=== PATIENT | female | born 1975 | race Caucasian/White ===

== ENCOUNTER → 2016-06-03 | Outpatient (CLI) | payer OTHER ==
--- NOTE | 2016-06-03 14:22 | MM ---
Reason for exam: screening (asymptomatic). Baseline mammogram. History: Took hormonal contraceptives beginning at age 18. Physical Findings: Nurse did not find any significant physical abnormalities on exam. MG Screening Mammo w CAD Bilateral CC and MLO view(s) were taken. The breast tissue is heterogeneously dense. This may lower the sensitivity of mammography. No suspicious calcifications or masses are seen. There is no discrete abnormality. ASSESSMENT: Negative, BI-RAD 1 RECOMMENDATION: Routine screening mammogram of both breasts in 1 year.
== END | disposition home or self-care (01) ==
LOC: RADMAMWWP 10:25
PROVIDERS: ATTEND Obstetrics & Gynecology
DX: Z12.31 Encounter for screening mammogram for malignant neoplasm of breast (principal)

== ENCOUNTER 2017-03-21 20:45 | Inpatient (IN) | payer MEDICAID, OTHER ==
[2017-03-21 22:50] LABS: Acetaminophen <10.0 ug/mL; Salicylate <1.0 mg/dL
[2017-03-21 22:50] LABS: Amphetamine Screen,Urine Not Detected (NotDetected); Barbiturate Screen,Urine Not Detected (NotDetected); Benzodiazepines Screen,Urine Not Detected (NotDetected); Cocaine Screen,Urine Not Detected (NotDetected); Methadone Screen, Urine Not Detected (NotDetected); Opiate Screen,Urine Not Detected (NotDetected); Oxycodone Screen, Urine Not Detected (NotDetected); Phencyclidine Screen,Urine Not Detected (NotDetected); Tricyclic Antidepressant,Urine Not Detected (NotDetected); Urn Cannabinoid Scrn Detected (NotDetected)
[2017-03-22] MEDS ORDERED: MAGNESIUM HYDROXIDE 2,400 MG/10 ML CUP PO PRN (00:02)
[2017-03-22] MEDS ORDERED: MAG HYDROX/AL HYDROX/SIMETH 30 ML CUP PO PRN (00:02)
--- NOTE | 2017-03-22 00:13 | ED ---
General Adult HPI - General Chief complaint: Psychiatric Symptoms Stated complaint: mental health Time Seen by Provider: 03/21/17 21:38 Source: patient, RN notes reviewed Mode of arrival: ambulatory Limitations: no limitations - History of Present Illness Initial comments: Chief complaint and history of present illness this is a 42-year-old female brought to emergency room under pickup. The patient is not taking her medications history of schizophrenia. She reportedly hearing and seeing things. Not taking care of herself - Related Data Home Medications Medication Instructions Recorded Confirmed ARIPiprazole IM [Abilify Maintena] 400 mg IM Q30D 03/21/17 03/21/17 Cyclobenzaprine [Flexeril] 10 mg PO BID 03/21/17 03/21/17 DULoxetine HCL [Cymbalta] 60 mg PO DAILY 03/21/17 03/21/17 Ibuprofen [Motrin] 800 mg PO TID PRN 03/21/17 03/21/17 Propranolol LA [Inderal LA] 80 mg PO DAILY 03/21/17 03/21/17 Topiramate [Topamax] 25 mg PO BID 03/21/17 03/21/17 hydrOXYzine PAMOATE [Vistaril] 50 mg PO HS 03/21/17 03/21/17 Allergies Allergy/AdvReac Type Severity Reaction Status Date / Time Penicillins Allergy Rash/Hives Verified 03/21/17 21:38 Review of Systems ROS Statement: Those systems with pertinent positive or pertinent negative responses have been documented in the HPI. Review of systems patient denying any headache chest pain shortness breath GI/ problems. She has not been answering the door for her caseworkers. Reportedly not taking the medications for schizophrenia. Past medical problems significant for schizoaffective disorder. Patient reports that she has ALLERGIES to penicillin. Surgeries include a . Occasional smoker ROS Other: All systems not noted in ROS Statement are negative. Past Medical History Past Medical History: No Reported History Additional Past Medical History / Comment(s): Schizoaffective disorder, fibromyalgia, herniated disc History of Any Multi-Drug Resistant Organisms: None Reported Past Surgical History: Section Past Anesthesia/Blood Transfusion Reactions: No Reported Reaction Past Psychological History: Depression, Schizoaffective Disorder, Schizophrenia Smoking Status: Current every day smoker Past Alcohol Use History: Occasional Past Drug Use History: Marijuana General Exam - General Exam Comments Initial Comments: General: The patient is awake and alert, in no distress, and does not appear acutely ill. patient denies any problems. She is here because she has schizophrenia she 's not been taking her medications not been answering the door for her counselors and her caseworkers. 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 Vital signs shows temperature 97.8 pulse 111 respiratory rate 18 pulse ox on percent room air blood pressure 119/81 Eye: Pupils are equal, round and reactive to light, extra-ocular movements are intact ; there is normal conjunctiva bilaterally. No signs of icterus. Ears, nose, mouth and throat: There are moist mucous membranes , extremely poor dentition and multiple caries with fractured teeth Neck: The neck is supple, Cardiovascular: There is a regular rate and rhythm. No murmur, rub or gallop is appreciated. Respiratory: Lungs are clear to auscultation, respirations are non-labored, breath sounds are equal. No wheezes, stridor, rales, or rhonchi. Gastrointestinal: Soft, non-distended, non-tender abdomen without masses or organomegaly noted. There is no rebound or guarding present. No CVA tenderness. Bowel sounds are unremarkable.denying abdominal pain. Back: denies back pain. Musculoskeletal: Normal ROM, no tenderness, There is no pedal edema. There is no calf tenderness or swelling. Sensation intact. Neurological: neuro intact, not complaining of any neuro deficits. Skin: Skin is warm and dry and no rashes or lesions are noted. Psychiatric: initially the patient did not want to talk. Then she started to speak. She states she is schizophrenic states she is taking medications. Denying to me that she is hallucinating. Limitations: no limitations Course Vital Signs 03/21/17 21:05 Temperature 97.8 F Pulse Rate 111 H Respiratory 18 Rate Blood Pressure 119/81 O2 Sat by Pulse 100 Oximetry Medical Decision Making - Medical Decision Making his labs within normal limits. Patient has been petitioned for further evaluation on the psychiatric floor. I have completed a certificate for admission. Psychiatric nurse spoke to the patient and the psychiatrist. Patient be admitted to 3 . - Lab Data Lab Results 03/21/17 03/21/17 03/21/17 Range/Units 22:15 22:15 22:34 Urine HCG, Qual Not Detected (Not Detectd) Salicylates <1.0 mg/dL Urine Opiates Screen Not Detected (NotDetected) Ur Oxycodone Screen Not Detected (NotDetected) Urine Methadone Screen Not Detected (NotDetected) Ur Propoxyphene Screen Not Detected (NotDetected) Acetaminophen <10.0 ug/mL Ur Barbiturates Screen Not Detected (NotDetected) U Tricyclic Antidepress Not Detected (NotDetected) Ur Phencyclidine Scrn Not Detected (NotDetected) Ur Amphetamines Screen Not Detected (NotDetected) U Methamphetamines Scrn Not Detected (NotDetected) U Benzodiazepines Scrn Not Detected (NotDetected) Urine Cocaine Screen Not Detected (NotDetected) U Marijuana (THC) Screen Detected H (NotDetected) Disposition Clinical Impression: Schizophrenia Disposition: TRANSFER TO PSYCH HOSP/UNIT Condition: Serious
[2017-03-22 00:29] LABS: Appearance,Urine Cloudy (Clear); Bacteria,Urine Rare /hpf; Bilirubin,Urine Negative (Negative); Blood,Urine Negative (Negative); Color,Urine Yellow; Glucose,Urine (UA) Negative (Negative); Hyaline Casts,Urine 3 /lpf (0-2); Ketones,Urine Negative (Negative); Leukocyte Esterase,Urine Trace (Negative); Mucus,Urine Occasional /hpf; Nitrite,Urine Negative (Negative); Protein,Urine Trace (Negative); RBC,Urine 1 /hpf (0-5); Specific Gravity,Urine 1.016 (1.001-1.035); Squamous Epithelial Cell,Urine 25 /hpf (0-4); Urobilinogen,Urine <2.0 mg/dL (<2.0); WBC,Urine 2 /hpf (0-5)
[2017-03-22] MEDS: PROPRANOLOL LA 80 MG CAP.SA.24H PO SCH (09:02)
[2017-03-22] MEDS: TOPIRAMATE 25 MG TAB PO SCH ×2 (09:02→20:40)
[2017-03-22] MEDS: CYCLOBENZAPRINE 10 MG TAB PO SCH ×2 (09:02→20:40)
[2017-03-22] MEDS: NICOTINE 14MG/24HR PATCH TRANSDERM SCH (09:02)
[2017-03-22] MEDS: DULoxetine HCL 60 MG CAPSULE.DR PO SCH (09:02)
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
--- NOTE | 2017-03-22 11:25 | P.CONS ---
History of Present Illness - Reason for Consult Consult date: 03/22/17 Medical management - Chief Complaint Hearing voices - History of Present Illness This is a 42-year-old female with past medical history noted below significant for underlying schizoaffective disorder and depression who presented to the emergency room brought in by her friend edis to be admitted to the psych unit. Apparently, patient has been hearing(and acting strangely for a couple weeks. She has been also drinking alcohol according to chart review. Patient is currently admitted to the psych unit. I was asked to see her for medical management. Patient is awake and alert. She is not very cooperative answering my questions. She said that she is feeling well and denies drinking alcohol at all. She denies hearing any voices. Review of Systems Review of system: 14 points review of systems were obtained and were negative except to what were mentioned in the HPI. Past Medical History Past Medical History: No Reported History Additional Past Medical History / Comment(s): Schizoaffective disorder, fibromyalgia, herniated disc History of Any Multi-Drug Resistant Organisms: None Reported Past Surgical History: Section Past Anesthesia/Blood Transfusion Reactions: No Reported Reaction Past Psychological History: Depression, Schizoaffective Disorder, Schizophrenia Smoking Status: Current every day smoker Past Alcohol Use History: Occasional Past Drug Use History: Marijuana Medications and Allergies Home Medications Medication Instructions Recorded Confirmed Type ARIPiprazole IM [Abilify Maintena] 400 mg IM Q30D 03/21/17 03/21/17 History Cyclobenzaprine [Flexeril] 10 mg PO BID 03/21/17 03/21/17 History DULoxetine HCL [Cymbalta] 60 mg PO DAILY 03/21/17 03/21/17 History Ibuprofen [Motrin] 800 mg PO TID PRN 03/21/17 03/21/17 History Propranolol LA [Inderal LA] 80 mg PO DAILY 03/21/17 03/21/17 History Topiramate [Topamax] 25 mg PO BID 03/21/17 03/21/17 History hydrOXYzine PAMOATE [Vistaril] 50 mg PO HS 03/21/17 03/21/17 History Allergies Allergy/AdvReac Type Severity Reaction Status Date / Time Penicillins Allergy Rash/Hives Verified 03/21/17 21:38 Physical Exam Vitals: Vital Signs Temp Pulse Pulse Pulse Resp BP BP 03/22/17 09:00 108 H 18 120/77 03/22/17 04:25 98.9 F 95 18 03/22/17 00:06 98.3 F 88 16 123/77 03/21/17 21:05 97.8 F 111 H 18 119/81 BP Pulse Ox 03/22/17 09:00 03/22/17 04:25 137/96 03/22/17 00:06 100 03/21/17 21:05 100 Intake and Output 03/21/17 03/22/17 03/22/17 22:59 06:59 14:59 Other: Weight 74.843 kg General: The patient is awake and alert, in no distress Eye: there is normal conjunctiva bilaterally. Neck: The neck is supple, there is no JVD. Cardiovascular: Normal S1-S2, no S3-S4, no murmurs. Respiratory: Lungs clear to auscultation bilaterally Gastrointestinal: Abdomen is soft, nontender Musculoskeletal: There is no pedal edema. Neurological:. Speech is normal. Skin: Skin is warm and dry Results Labs: Abnormal Lab Results - Last 24 Hours (Table) 03/21/17 03/22/17 Range/Units 22:15 00:05 Urine Appearance Cloudy H (Clear) Urine Protein Trace H (Negative) Ur Leukocyte Esterase Trace H (Negative) Ur Squamous Epith Cells 25 H (0-4) /hpf Urine Bacteria Rare H (None) /hpf Hyaline Casts 3 H (0-2) /lpf Urine Mucus Occasional H (None) /hpf U Marijuana (THC) Screen Detected H (NotDetected) Assessment and Plan Assessment: 1. Underlying schizophrenia presented to the hospital with acute psychosis. Currently admitted to the psych unit. Managed by psychiatry. 2. Major depressive disorder, with no suicidal ideation 3. Essential hypertension, blood pressure well-controlled 4. Alcohol abuse, counseled extensively to quit 5. Chronic low back pain Today, I reviewed her medication list and lab work results. Continue current regimen. I will continue to follow up on her on an as-needed basis. Thank you very much for the consultation.
[2017-03-22] MEDS: QUEtiapine 50 MG TAB PO SCH (20:40)
[2017-03-22] MEDS: IBUPROFEN 800 MG TAB PO PRN (20:41)
[2017-03-22] MEDS ORDERED: hydrOXYzine PAMOATE 25 MG CAP PO SCH (21:00)
[2017-03-23] MEDS: PROPRANOLOL LA 80 MG CAP.SA.24H PO SCH (09:00)
[2017-03-23] MEDS: CYCLOBENZAPRINE 10 MG TAB PO SCH ×2 (09:00→21:14)
[2017-03-23] MEDS: TOPIRAMATE 25 MG TAB PO SCH ×2 (09:00→21:13)
[2017-03-23] MEDS: DULoxetine HCL 60 MG CAPSULE.DR PO SCH (09:00)
[2017-03-23] MEDS: IBUPROFEN 800 MG TAB PO PRN (09:01)
[2017-03-23] MEDS: NICOTINE 14MG/24HR PATCH TRANSDERM SCH (09:03)
--- NOTE | 2017-03-23 09:21 | P.PN ---
Progress Note - Text Interval history: The patient is found in the hallway she follows me to an interview room. She initiates no conversation but provides brief answers to questions asked. Overall she is guarded she is underreporting symptoms and is vague especially when inquiring about symptoms of psychosis. She indicates that she slept better with the Seroquel versus Vistaril. She has been compliant with the Cymbalta which we have restarted. She reports her appetite continues to be low although she did eat some this morning. Mental status exam: The patient is a female dressed in hospital gowns she has a disheveled appearance. She has a very bland to flat affect. She demonstrates psychomotor slowing. She describes her mood as "dandy". She endorses auditory hallucinations but does not feel comfortable describing the content she does not feel comfortable describing the content of delusional thoughts. Overall she appears suspicious and guarded. She continues to lack insight into the reason for this admission. She is oriented to person place and date. She demonstrates no verbal or physical aggressiveness she demonstrates no abnormal involuntary movements. She does not appear hypomanic or manic. Plan: The patient will continue on her current psychotropics we will consider titrating the Seroquel further. She is encouraged to attend more groups. Vital signs reviewed. She requires continued evaluation and treatment for symptoms of psychosis.
[2017-03-23 09:28] LABS: Basophils % (A) 0 %; Eosinophils # (A) 0.3 k/uL (0-0.7); Eosinophils % (A) 3 %; HGB 16.1 gm/dL (11.4-16.0); Lymphocytes # (A) 2.8 k/uL (1.0-4.8); Lymphocytes % (A) 33 %; MCH 29.7 pg (25.0-35.0); MCHC 33.6 g/dL (31.0-37.0); MCV 88.5 fL (80.0-100.0); Mean Platelet Volume 8.2; Monocytes # (A) 0.3 k/uL (0-1.0); Monocytes % (A) 3 %; Neutrophils % (A) 59 %; Platelet Count 309 k/uL (150-450); RBC 5.43 m/uL (3.80-5.40); RDW 13.3 % (11.5-15.5); WBC 8.5 k/uL (3.8-10.6)
[2017-03-23 09:46] LABS: ALT 44 U/L (9-52); AST 32 U/L (14-36); Albumin 4.2 g/dL (3.5-5.0); Alkaline Phosphatase 70 U/L (38-126); Anion Gap 9 mmol/L; Blood Urea Nitrogen 13 mg/dL (7-17); Calcium 9.9 mg/dL (8.4-10.2); Carbon Dioxide 22 mmol/L (22-30); Chloride 110 mmol/L (98-107); Cholesterol 234 mg/dL (<200); Glucose 141 mg/dL (74-99); HDL Cholesterol 37 mg/dL (40-60); LDL Cholesterol,Calculated 164 mg/dL (0-99); Sodium 141 mmol/L (137-145); Total Bilirubin 0.5 mg/dL (0.2-1.3); Total Protein 7.5 g/dL (6.3-8.2); Triglycerides 163 mg/dL (<150)
[2017-03-23 10:32] LABS: Potassium 4.3 mmol/L (3.5-5.1)
[2017-03-23] MEDS: QUEtiapine 50 MG TAB PO SCH (21:14)
[2017-03-24] MEDS ORDERED: IBUPROFEN 600 MG TAB PO ONE (09:00)
[2017-03-24] MEDS ORDERED: TOPIRAMATE 25 MG TAB ONE (09:00)
[2017-03-24] MEDS ORDERED: CYCLOBENZAPRINE 10 MG TAB ONE (09:00)
[2017-03-24] MEDS ORDERED: PROPRANOLOL LA 80 MG CAP.SA.24H PO ONE (09:00)
[2017-03-24] MEDS ORDERED: QUEtiapine 100 MG TAB ONE ×2 (09:00→20:38)
[2017-03-24] MEDS ORDERED: DULoxetine HCL 60 MG CAPSULE.DR PO ONE (09:00)
[2017-03-24] MEDS ORDERED: NICOTINE 21MG/24HR PATCH TRANSDERM ONE (09:00)
--- NOTE | 2017-03-24 22:53 | PN ---
PROGRESS NOTE DATE OF SERVICE DICTATION: 03/24/2017 INTERVAL HISTORY: The patient is found in the dining room. She follows me to an interview room. She endorses a depressed mood. She reports having some hopeless thinking and states that she had a suicidal thought yesterday. She indicates that she is sleeping better with the use of Seroquel, but it appears she is only getting approximately 5 hours of sleep. Appetite has been diminished, but she feels it is improving. She reports attending one group yesterday despite encouragement to fully attend. MENTAL STATUS EXAM: The patient is a female appearing her stated age. She has a disheveled appearance. Eye contact is intermittent. She is more cooperative with participating in the interview today. She maintains a very bland to flat affect. Mood is described as depressed and hopeless with recent suicidal ideation. She is under reporting symptoms of psychosis likely to facilitate an earlier discharge. She demonstrates no abnormal involuntary movements. She demonstrates no verbal or physical aggressiveness. She does continue to demonstrate lack of insight as to why she was admitted. She remains oriented to person, place, and date. PLAN: The patient will continue on her current psychotropic medication. I will titrate the Seroquel to 100 mg at bedtime. We will continue to monitor for safety and encourage her participation in milieu. MMODL / IJN: [id number] /
[2017-03-25] MEDS: PROPRANOLOL LA 80 MG CAP.SA.24H PO SCH (09:31)
[2017-03-25] MEDS: NICOTINE 14MG/24HR PATCH TRANSDERM SCH (09:32)
[2017-03-25] MEDS: DULoxetine HCL 60 MG CAPSULE.DR PO SCH (09:33)
[2017-03-25] MEDS: CYCLOBENZAPRINE 10 MG TAB PO SCH ×2 (09:33→20:31)
[2017-03-25] MEDS: TOPIRAMATE 25 MG TAB PO SCH ×2 (09:34→20:32)
[2017-03-25] MEDS: IBUPROFEN 800 MG TAB PO PRN (09:37)
[2017-03-25] MEDS: QUEtiapine 100 MG TAB PO SCH (20:31)
[2017-03-26] MEDS: PROPRANOLOL LA 80 MG CAP.SA.24H PO SCH ×2 (03:35→08:39)
[2017-03-26] MEDS: DULoxetine HCL 60 MG CAPSULE.DR PO SCH ×2 (03:35→08:39)
[2017-03-26] MEDS: NICOTINE 14MG/24HR PATCH TRANSDERM SCH ×2 (03:35→08:47)
[2017-03-26] MEDS: TOPIRAMATE 25 MG TAB PO SCH ×3 (03:35→20:15)
[2017-03-26] MEDS: CYCLOBENZAPRINE 10 MG TAB PO SCH ×3 (03:35→20:15)
[2017-03-26] MEDS: QUEtiapine 100 MG TAB PO SCH ×2 (03:36→20:15)
--- NOTE | 2017-03-27 00:03 | P.PN ---
Progress Note - Text Progress Note Date: 03/25/17 42yo CF admitted on petition by roommate due to disruptive behaviors at home and need for medication adjustment. Currently involuntary. Interval history: The patient is found in the hallway she follows me to an interview room. She appears to be in a good mood and less agitated. Reports that she feels "a little bit better". States that she is dealing with hospitalization as there is not much she can do to change circumstance. Does inquire about the court process and I explained the process of deferral and trial to her. Spent majority of remainder of conversation discussing her relationship with her 10yo daughter who she feels has behavioral issues but also feels that she could be a better mother to. States that her daughter's father is trying to get custody of her and she is upset with this decision as she would like to jointly parent. Pt has been compliant with medications and reports no adverse effects. States that she slept well with Seroquel. Mental status exam: The patient is a female who is casually dressed and fairly groomed. She has a restricted to blunted affect. She demonstrates psychomotor slowing. She describes her mood as "a little bit better". She endorses auditory hallucinations but does not feel comfortable describing the content and does not feel comfortable describing the content of delusional thoughts. Overall she appears suspicious and guarded. She continues to lack insight into the reason for this admission. She is oriented to person place and date. She demonstrates no verbal or physical aggressiveness she demonstrates no abnormal involuntary movements. She does not appear hypomanic or manic. Assessment: 1. Schizoaffective disorder, alcohol use disorder 2. History of fibromyalgia, neck pain, cephalgia 3. Psychosocial dysfunction due to exacerbation of psychotic symptoms Plan: The patient will continue on her current psychotropics. She is encouraged to attend more groups. Vital signs reviewed. She requires continued evaluation and treatment for symptoms of psychosis.
--- NOTE | 2017-03-27 00:11 | P.PN ---
Progress Note - Text Progress Note Date: 03/26/17 42yo CF admitted on petition by roommate due to disruptive behaviors at home and need for medication adjustment. Currently involuntary. Interval history: The patient is found in the hallway when approached during rounds today. Reports that she has anger inside but holding it in as it is not her character to act on her anger on the unit. Pt has been compliant with medications and reports no adverse effects. Attending groups on the unit. Later this evening appeared to be more agitated with furrowed brow. Approached this provider with questions regarding people that she interacts with outside of the unit being aware of what is going on with her while in the hospital. Discussed the use of ANKIT and that SW do sometimes speak to family and friends with patient's consent. She states that she does not want to talk to anyone and inquiring about patient advocate; however, when informed of the hospital patient advocate, Khanh, patient states that she has a different advocate and becomes more agitated. Once again asking about court process and not understanding fully what is going on. Mental status exam: The patient is a female who is casually dressed and fairly groomed. She has a restricted to blunted affect. She demonstrates psychomotor slowing. Her mood is agitated. She endorses auditory hallucinations but does not feel comfortable describing the content and does not feel comfortable describing the content of delusional thoughts. Overall she appears suspicious and guarded. She continues to lack insight into the reason for this admission. She is oriented to person place and date. She demonstrates no verbal or physical aggressiveness she demonstrates no abnormal involuntary movements. She does not appear hypomanic or manic. Assessment: 1. Schizoaffective disorder, alcohol use disorder 2. History of fibromyalgia, neck pain, cephalgia 3. Psychosocial dysfunction due to exacerbation of psychotic symptoms Plan: The patient will continue on her current psychotropics. She is encouraged to attend groups. Vital signs reviewed. She requires continued evaluation and treatment for symptoms of psychosis. Her deferral is scheduled for 03/29 and trial on 04/05/17.
[2017-03-27] MEDS: NICOTINE 14MG/24HR PATCH TRANSDERM SCH (09:06)
[2017-03-27] MEDS: IBUPROFEN 800 MG TAB PO PRN ×2 (09:08→18:51)
[2017-03-27] MEDS: DULoxetine HCL 60 MG CAPSULE.DR PO SCH (09:08)
[2017-03-27] MEDS: PROPRANOLOL LA 80 MG CAP.SA.24H PO SCH (09:08)
[2017-03-27] MEDS: TOPIRAMATE 25 MG TAB PO SCH ×2 (09:08→20:29)
[2017-03-27] MEDS: CYCLOBENZAPRINE 10 MG TAB PO SCH ×2 (09:08→20:29)
[2017-03-27] MEDS: QUEtiapine 100 MG TAB PO SCH (20:29)
--- NOTE | 2017-03-27 21:50 | PN ---
PROGRESS NOTE DATE OF SERVICE: 03/27/2017. CHIEF COMPLAINT: The patient was admitted due to disorganized thinking and behavior. She was delusional. She was not sleeping. She was abusing alcohol. INTERVAL HISTORY: The patient has been doing fair. She continues to complain about the hospital situation. She does not believe that she should be here. She disagrees with much of what has been documented in regards to her function. She does acknowledge that she has been abusing alcohol and marijuana of late. She has been compliant with medications. She describes having problems with muscle spasms, though it is not clear that relates to in an EPS symptoms from her antipsychotic. She says that Flexeril she has been on has not been particularly helpful. She says she does have an appointment coming up with her neurologist to evaluate that further. She has not had any issues with cogwheeling, abnormal movements, or tremor. She appears to tolerate her psychotropic medications. MENTAL STATUS: Patient gave good eye contact. Psychomotor activity was somewhat slowed. She sat with a stiff posture. Her affect was intense and she had a somewhat angry manner. Her mood was dysphoric. She was moderately distressed. There was some suggestion of delusional thinking. She was cooperative in the interview. ASSESSMENT: I will continue the current diagnosis and treatment plan. We will continue to engage the patient in individual and group therapeutic activities. I will continue psychotropic medications the same. The patient continues to show a moderate level of psychotic thinking. We will continue to focus on stabilization and discharge planning. LIVIA / MARCIA: [id number] /
[2017-03-28] MEDS: PROPRANOLOL LA 80 MG CAP.SA.24H PO SCH (08:12)
[2017-03-28] MEDS: NICOTINE 14MG/24HR PATCH TRANSDERM SCH (08:14)
[2017-03-28] MEDS: CYCLOBENZAPRINE 10 MG TAB PO SCH ×2 (08:14→20:33)
[2017-03-28] MEDS: DULoxetine HCL 60 MG CAPSULE.DR PO SCH (08:14)
[2017-03-28] MEDS: TOPIRAMATE 25 MG TAB PO SCH ×2 (08:15→20:33)
[2017-03-28] MEDS: IBUPROFEN 800 MG TAB PO PRN (08:16)
[2017-03-28] MEDS ORDERED: DULoxetine HCL 30 MG CAPSULE.DR PO STA (16:33)
--- NOTE | 2017-03-28 19:33 | PN ---
PROGRESS NOTE DATE OF SERVICE: 03/28/2017. CHIEF COMPLAINT: The patient was admitted due to disorganized thinking and behavior. She was delusional. She was not sleeping. She was abusing alcohol. INTERVAL HISTORY: Patient has been doing fair. She had a quiet evening last night. She slept fairly well. Today she has been up. She has been attending groups. She still is quite negative about her situation of being in the hospital. She continues to talk about things that were documented, which she disagrees with. She was distressed about the petition and pickup order. She continues to have a down mood and was willing to try an increase in her Cymbalta. She has not had change in her general health. She tolerates his psychotropic medication. MENTAL STATUS: Patient gave fair eye contact at best. She had slowed movement. She states that with a stiff posture. Affect was angry. Her mood dysphoric. She was moderately distressed. ASSESSMENT: I will continue the current diagnosis and treatment plan. I will increase Cymbalta to 90 mg a day. I had an extensive discussion with the patient regarding the process of petition and involuntary hospitalization. We discussed the fact that the treatment is to be focused on her needs and that followup is determined by what will best help and support her towards recovering. It is noted that while the patient seemed angry for much of the interview, by the end of the interview she seemed a little more calm and reassured. We will continue to focus on stabilization and discharge planning. LIVIA / MARCIA: [id number] /
[2017-03-28] MEDS: QUEtiapine 100 MG TAB PO SCH (20:33)
[2017-03-29] MEDS: NICOTINE 14MG/24HR PATCH TRANSDERM SCH (09:32)
[2017-03-29] MEDS: PROPRANOLOL LA 80 MG CAP.SA.24H PO SCH (09:33)
[2017-03-29] MEDS: TOPIRAMATE 25 MG TAB PO SCH ×2 (09:33→22:15)
[2017-03-29] MEDS: CYCLOBENZAPRINE 10 MG TAB PO SCH ×2 (09:33→22:15)
[2017-03-29] MEDS: DULoxetine HCL 30 MG CAPSULE.DR PO SCH (09:33)
--- NOTE | 2017-03-29 11:51 | P.PN ---
Progress Note - Text Interval history: The patient is found in her room she follows me to an interview room. She had her deferral conference this morning and decided to defer the court hearing. In my absence the Cymbalta was titrated to 90 mg daily. She states that she does feel depressed and she's been having tearful episodes. She had suicidal thoughts as late as 2 days ago. She is somewhat guarded in terms of her symptoms of psychosis. She states she wonders if everybody is against her including friends and family. She believes her family continues to place her in here for the holidays as it is more convenient so they don't have to buy her a gift or feed her at Andrea time. Mental status exam: The patient is an overweight female appearing her stated age. She is dressed in her own clothing hygiene grooming fair. Eye contact is intermittent. Speech is fluent and spontaneous. She does demonstrate some psychomotor slowing. She follows me down the hallway very slowly. Again at the end of the session it takes an extra 1-2 minutes for her to realize the session has terminated and she needs to leave the office. She reports suicidal thoughts as recent as 2 days ago. No homicidal ideation. She is endorsing no hallucinations but appears to have some paranoid thinking. She demonstrates no verbal or physical aggressiveness. She demonstrates no abnormal involuntary movements. Insight and judgment limited. Plan: The patient will continue on her current medications I will titrate the Seroquel to 200 mg at bedtime. She is not yet due for her Abilify maintena. We will monitor her for safety and encourage her participation in the milieu. We are looking for some reduction of her depressive thinking and suicidal thoughts prior to discharge. The titration of Seroquel may also aid with reducing depressive symptoms as well as reducing symptoms of psychosis. Vital signs reviewed.
[2017-03-29] MEDS: QUEtiapine 200 MG TAB PO SCH (22:15)
[2017-03-30] MEDS: NICOTINE 14MG/24HR PATCH TRANSDERM SCH (08:21)
[2017-03-30] MEDS: TOPIRAMATE 25 MG TAB PO SCH ×2 (08:22→20:57)
[2017-03-30] MEDS: DULoxetine HCL 30 MG CAPSULE.DR PO SCH (08:22)
[2017-03-30] MEDS: CYCLOBENZAPRINE 10 MG TAB PO SCH ×2 (08:22→20:57)
[2017-03-30] MEDS: PROPRANOLOL LA 80 MG CAP.SA.24H PO SCH (08:22)
--- NOTE | 2017-03-30 10:04 | P.PN ---
Progress Note - Text Interval history: The patient is found in her room she follows me to an interview room. She has difficulty describing how she feels today. Eventually she states "so-so". She continues to convey a feeling of being unsafe. She reports having a phone call from family members last evening but seems distrustful of them area she admits to isolating in her room throughout the day and only attends 2-3 groups. We discussed the recent titration of Seroquel. She does feel that she slept well last night staff documented she slept 5 hours. She is concerned that if she sleeps too well she will be alert enough to respond to potential danger in the evening area Mental status exam: The patient is alert she is a disheveled appearance she is dressed in her own clothing. She demonstrates psychomotor slowing. Eye contact is intermittent speech is fluent spontaneous at times but slow. She reports a depressed mood she is reporting no suicidal thoughts today. She is more focused on paranoid thoughts and uncertain if she is safe. She demonstrates no abnormal involuntary movements. She demonstrates no verbal or physical aggressiveness. Insight and judgment limited. Plan: There seems to be some mild improvement during the course of the hospitalization. We will continue the Seroquel as written she is not yet due for the Abilify injection. Topamax will be increased to 75 mg twice daily to address ongoing reported migraine headaches. She is encouraged to participate more fully in the milieu. We will continue to monitor her for safety.
[2017-03-30] MEDS: QUEtiapine 200 MG TAB PO SCH (20:57)
[2017-03-30] MEDS: IBUPROFEN 800 MG TAB PO PRN (20:59)
[2017-03-31] MEDS: DULoxetine HCL 30 MG CAPSULE.DR PO SCH (09:20)
[2017-03-31] MEDS: CYCLOBENZAPRINE 10 MG TAB PO SCH ×2 (09:20→21:57)
[2017-03-31] MEDS: NICOTINE 14MG/24HR PATCH TRANSDERM SCH (09:21)
[2017-03-31] MEDS: PROPRANOLOL LA 80 MG CAP.SA.24H PO SCH (09:21)
[2017-03-31] MEDS: TOPIRAMATE 25 MG TAB PO SCH ×2 (09:21→21:57)
[2017-03-31] MEDS: IBUPROFEN 800 MG TAB PO PRN ×2 (11:32→20:21)
--- NOTE | 2017-03-31 11:35 | P.PN ---
Progress Note - Text Interval history: The patient is found in the hallway she follows me to an interview room. Staff report that she contributed more in group. She continues to relate a sense of he and unsafe or at least being uncertain about her safety. She expresses frustration about being petition and to the hospital and we processed that further. She is able to receive some input and give it consideration. She reports her mood continues to be down. We discussed her current psychotropic medications and her questions were answered. Mental status exam: The patient is an overweight female she is dressed in her own clothing she has recently showered. Eye contact is intermittent. She continues to demonstrate some psychomotor slowing. She has spontaneous speech although it is slow. She endorses a depressed mood she endorses feelings of uncertainty as to whether or not she is safe. She is suspicious of others including the petitioner. She is endorsing no auditory hallucinations but she may be underreporting symptoms. She demonstrates no verbal or physical aggressiveness. She demonstrates no abnormal involuntary movements. Insight and judgment limited but perhaps slowly improving. Plan: The patient will continue her current medications she is [facility] April [facility]. It appears that she is demonstrating some clinical improvement but still requires inpatient psychiatric hospitalization. She may be appropriate for discharge sometime next week if sufficiently stabilized. Vital signs reviewed. We will continue to monitor her for safety and encourage full participation in the milieu. Reality orientation will be provided when possible.
[2017-03-31] MEDS: ACETAMINOPHEN TAB 325 MG TAB PO PRN (16:33)
[2017-03-31] MEDS: QUEtiapine 200 MG TAB PO SCH (21:57)
[2017-04-01] MEDS: NICOTINE 14MG/24HR PATCH TRANSDERM SCH (08:30)
[2017-04-01] MEDS: TOPIRAMATE 25 MG TAB PO SCH ×2 (08:31→20:45)
[2017-04-01] MEDS: DULoxetine HCL 30 MG CAPSULE.DR PO SCH (08:31)
[2017-04-01] MEDS: CYCLOBENZAPRINE 10 MG TAB PO SCH ×2 (08:31→20:45)
[2017-04-01] MEDS: IBUPROFEN 800 MG TAB PO PRN ×2 (08:31→20:45)
[2017-04-01] MEDS: PROPRANOLOL LA 80 MG CAP.SA.24H PO SCH (08:31)
[2017-04-01] MEDS ORDERED: ATORVASTATIN 20 MG TAB PO STA (12:15)
[2017-04-01] MEDS: ACETAMINOPHEN TAB 325 MG TAB PO PRN (13:15)
[2017-04-01] MEDS: QUEtiapine 200 MG TAB PO SCH (20:45)
--- NOTE | 2017-04-01 21:21 | PN ---
PROGRESS NOTE DATE OF SERVICE: 04/01/2017. CHIEF COMPLAINT: The patient was admitted due to disorganized thinking and behavior. She was delusional. She was not sleeping. She was abusing alcohol. INTERVAL HISTORY: Patient has been doing fair. She had a quiet evening last night. She slept well today. She has been up and about. She tends to keep to herself. She does come out in the day area. She will interact a little with others. She tends to carry herself about in a quiet, reserved manner. She has been cooperative. She continues to have a negative outlook in regards to her treatment standing and her medications. She has no specific complaints relating to her medications. She has not had change in her general health. She tolerates psychotropic medications. MENTAL STATUS: Patient gave fair eye contact. Psychomotor activity was slow. Speech was monotone. She answered questions with brief responses. Initially she had quite a reserved distant manner. Though toward the end of the interview, she was a little more spontaneous and interactive. She had a quiet mood. She did appear to be significantly distressed. ASSESSMENT: It was noted that she has a very mild jaw movement where she moves her jaw slightly [id number]. She says sometimes she grinds her teeth. She acknowledges that she is not always aware of the movement. PLAN: I will continue the current diagnosis and treatment plan. I will continue psychotropic medications the same. We discussed medication issues with the patient. I will check a fasting glucose, then hemoglobin A1c to be ordered for Monday. Given her elevated blood sugar on admission of 141, it is noted that she has mild jaw movement that could be an indication of early signs of tardive dyskinesia. She has had long- term use of antipsychotic medications. I discussed issues in regards to TD and potential interventions. We will continue to focus on stabilization and discharge planning. MMODL / IJN: [id number] /
[2017-04-02] MEDS ORDERED: PROPRANOLOL 20 MG TAB PO SCH (09:00)
[2017-04-02] MEDS ORDERED: PROPRANOLOL LA 60 MG CAP.SA.24H PO SCH ×2 (09:00)
[2017-04-02] MEDS: NICOTINE 14MG/24HR PATCH TRANSDERM SCH (09:37)
[2017-04-02] MEDS: CYCLOBENZAPRINE 10 MG TAB PO SCH ×2 (09:37→21:05)
[2017-04-02] MEDS: TOPIRAMATE 25 MG TAB PO SCH ×2 (09:38→21:05)
[2017-04-02] MEDS: IBUPROFEN 800 MG TAB PO PRN ×2 (09:38→21:06)
[2017-04-02] MEDS: DULoxetine HCL 30 MG CAPSULE.DR PO SCH (09:38)
[2017-04-02] MEDS: QUEtiapine 200 MG TAB PO SCH (21:05)
--- NOTE | 2017-04-03 08:32 | PN ---
PROGRESS NOTE DATE OF SERVICE: 04/02/2017. CHIEF COMPLAINT: The patient was admitted due to disorganized behavior and thoughts. She was delusional. She was not sleeping. She was abusing alcohol. INTERVAL HISTORY: Patient has been doing fairly well. She had a quiet evening last night. She slept well today. She has been up and about. She tends to keep to herself. She generally does not show a lot of positive responses to others. She seems to be pretty constricted in her emotional expression. She still talks about distress relating to some circumstances of admission. She believes that things that were documented were not accurate. She does acknowledge that she has had some issues with both mood and thought disorder. She has expectation of being referred [facility]. She has not had change in her general health. She tolerates his psychotropic medications. MENTAL STATUS: Patient gave fair eye contact. Psychomotor activity was a little slowed. Speech was somewhat monotone. She answered questions with direct responses. Her thoughts were clear. Her affect was somewhat blunted. Her mood reserved. She was somewhat distressed. ASSESSMENT: I will continue the current diagnosis and treatment plan. Continue psychotropic medications the same. Her Cymbalta has been increased to 90 mg a day. We do need to coordinate with [facility] in regards to follow up care. We will continue to focus on stabilization and discharge planning. LIVIA / MARCIA: [id number] /
[2017-04-03] MEDS: NICOTINE 14MG/24HR PATCH TRANSDERM SCH (08:41)
[2017-04-03] MEDS: CYCLOBENZAPRINE 10 MG TAB PO SCH ×2 (08:42→21:02)
[2017-04-03] MEDS: TOPIRAMATE 25 MG TAB PO SCH ×2 (08:42→21:02)
[2017-04-03] MEDS: DULoxetine HCL 30 MG CAPSULE.DR PO SCH (08:42)
[2017-04-03] MEDS: IBUPROFEN 800 MG TAB PO PRN ×2 (08:43→21:03)
[2017-04-03] MEDS ORDERED: PROPRANOLOL 20 MG TAB PO SCH (09:00)
[2017-04-03] MEDS: ACETAMINOPHEN TAB 325 MG TAB PO PRN (11:35)
[2017-04-03 18:03] LABS: Hemoglobin A1C 5.3 % (4.0-6.0)
[2017-04-03] MEDS: QUEtiapine 200 MG TAB PO SCH (21:03)
--- NOTE | 2017-04-04 08:12 | PN ---
PROGRESS NOTE DATE OF SERVICE: 04/03/2017. CHIEF COMPLAINT: The patient was admitted due to disorganized behavior and thoughts. She was delusional. She was not sleeping. She was abusing alcohol. INTERVAL HISTORY: Patient has been doing fair. She had a quiet evening last night. She slept well. Today she has been up and about. She comes out in the day area. For the most part she tends to keep to herself. She has attended groups. She tends to be quiet in groups. She continues to focus on discharge planning. She is able to discuss some discharge planning issues appropriately. She has not had change in her general health. She tolerates his psychotropic medications. MENTAL STATUS: Patient gave fair eye contact. Psychomotor activity was a little slowed. Speech was appropriate. Affect was somewhat blunted. She did smile a little. Her mood was quiet. She did not appear to be distressed. ASSESSMENT: I will continue the current diagnosis and treatment plan. I will continue psychotropic medications the same. The patient has shown some progress over the last few days where she seems a little less depressed, a little less withdrawn. She still has some distress over the issue of her involuntary treatment process. We will continue to focus on stabilization and discharge planning. Patient appears to be making progress to the point where I would anticipate discharge fairly soon. MMODL / IJN: [id number] /
[2017-04-04] MEDS: DULoxetine HCL 30 MG CAPSULE.DR PO SCH (09:13)
[2017-04-04] MEDS: NICOTINE 14MG/24HR PATCH TRANSDERM SCH (09:13)
[2017-04-04] MEDS: CYCLOBENZAPRINE 10 MG TAB PO SCH (09:13)
[2017-04-04] MEDS: TOPIRAMATE 25 MG TAB PO SCH ×2 (09:13→21:10)
[2017-04-04] MEDS: IBUPROFEN 800 MG TAB PO PRN ×2 (09:13→16:58)
[2017-04-04] MEDS: ACETAMINOPHEN TAB 325 MG TAB PO PRN (15:23)
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
[2017-04-04] MEDS: GABAPENTIN 100 MG CAP PO SCH ×2 (16:57→21:09)
[2017-04-04] MEDS: PROPRANOLOL 20 MG TAB PO SCH (21:10)
[2017-04-04] MEDS: QUEtiapine 200 MG TAB PO SCH (21:10)
[2017-04-04] MEDS: CYCLOBENZAPRINE 10 MG TAB PO PRN (21:11)
[2017-04-05] MEDS: TOPIRAMATE 25 MG TAB PO SCH ×2 (09:29→20:42)
[2017-04-05] MEDS: PROPRANOLOL 20 MG TAB PO SCH (09:29)
[2017-04-05] MEDS: NICOTINE 14MG/24HR PATCH TRANSDERM SCH (09:29)
[2017-04-05] MEDS: DULoxetine HCL 30 MG CAPSULE.DR PO SCH (09:30)
[2017-04-05] MEDS: GABAPENTIN 100 MG CAP PO SCH ×3 (09:30→21:52)
[2017-04-05] MEDS: IBUPROFEN 800 MG TAB PO PRN ×2 (09:33→20:43)
--- NOTE | 2017-04-05 11:31 | P.PN ---
Progress Note - Text Interval history: The patient is found in group she slowly follows me to an interview room. She indicates she is doing better. During one of the groups she was instructed to write a letter however she didn't understand who it should be to and what it should say. She showed me the letter and it appeared relevant with reasonable goals. Staff indicated the patient continues to demonstrate some fluctuation in terms of affect. She was noted to be tearful and irritable earlier in the day. She indicates that she sleeping. She reports compliance with her medication. Since I have seen her she has been restarted on propranolol and Neurontin was initiated. She feels that the propranolol has made her feel dizzy at times her blood pressure was low area Mental status exam: The patient is alert she stands for the duration of the session. She indicates she is feeling better. She demonstrates some psychomotor slowing. She reports expressing no auditory or visual hallucinations and that she is beginning to feel safer. It appears that she is demonstrating different affect during the course of the day however area she does once demonstrate appropriate smiling. Otherwise she maintains a bland affect. She initiates conversation. She response to reassurance during this session. She demonstrate no verbal or physical aggressiveness she demonstrates no abnormal involuntary movements. Insight appears limited. Plan: The patient will continue on her current psychotropic medications however we will discontinue the propranolol. We will continue to consider a discharge by the end of the week if she demonstrates sufficient clinical stability. We will monitor her for safety and encourage her participation in the milieu. Vital signs reviewed.
[2017-04-05] MEDS: QUEtiapine 200 MG TAB PO SCH (20:43)
[2017-04-05] MEDS: CYCLOBENZAPRINE 10 MG TAB PO PRN (20:45)
[2017-04-06] MEDS: GABAPENTIN 100 MG CAP PO SCH ×3 (08:50→21:52)
[2017-04-06] MEDS: TOPIRAMATE 25 MG TAB PO SCH ×2 (08:50→21:52)
[2017-04-06] MEDS: NICOTINE 14MG/24HR PATCH TRANSDERM SCH (08:50)
[2017-04-06] MEDS: DULoxetine HCL 30 MG CAPSULE.DR PO SCH (08:50)
[2017-04-06] MEDS: CYCLOBENZAPRINE 10 MG TAB PO PRN ×2 (08:52→16:54)
--- NOTE | 2017-04-06 11:11 | P.PN ---
Progress Note - Text Interval history: The patient is found in the hallway. Initially she refuses to speak with me but then states we can speak briefly. She asked if she can disassociate from [facility] and still honor the deferral agreement. We discussed that in detail and it is our recommendation that she stays with [facility]. Staff report that she has demonstrated a fluctuating affect. Yesterday morning she seemed more irritable and throughout the day she seemed to be more cooperative. Today staff report that she is more "closed off". Mental status exam: The patient is alert she is reluctant to speak with me but eventually does. She demonstrates a irritable affect and indicates her mood is troubled. She expresses some suspicious thinking regarding [facility] mental health. She is reporting no suicidal or homicidal thoughts. The session today was abbreviated due to her lack of willingness to participate. Plan: The patient will continue on her current psychotropic medications. She will be due for another Abilify maintena injection soon. I will titrate her Seroquel to 300 mg at bedtime. She is encouraged to participate in the milieu we will monitor her for safety.
[2017-04-06] MEDS: IBUPROFEN 800 MG TAB PO PRN (12:30)
[2017-04-06] MEDS: ACETAMINOPHEN TAB 325 MG TAB PO PRN (16:54)
[2017-04-06] MEDS: QUEtiapine 100 MG TAB PO SCH (21:53)
[2017-04-07] MEDS: DULoxetine HCL 30 MG CAPSULE.DR PO SCH (08:39)
[2017-04-07] MEDS: NICOTINE 14MG/24HR PATCH TRANSDERM SCH (08:39)
[2017-04-07] MEDS: TOPIRAMATE 25 MG TAB PO SCH ×2 (08:40→20:08)
[2017-04-07] MEDS: GABAPENTIN 100 MG CAP PO SCH ×3 (08:40→20:08)
[2017-04-07] MEDS: CYCLOBENZAPRINE 10 MG TAB PO PRN ×2 (08:40→16:46)
[2017-04-07] MEDS: IBUPROFEN 800 MG TAB PO PRN ×2 (08:41→16:47)
--- NOTE | 2017-04-07 11:33 | P.PN ---
Progress Note - Text interval history: The patient is found in her room she refuses to follow me to an interview room or speak today. Her case was discussed during treatment team meeting. Staff indicate that the patient's affect has been variable still. Reportedly she was agitated this morning but did better yesterday afternoon. She did have a lengthy discussion with social work yesterday there continues to be some paranoid thinking present further report. Mental status exam: The patient is alert she is dressed in her own clothing hygiene grooming appear to be adequate. She reports she is looking for her letter and is moving about her room. She refuses to follow me to an interview room. No eye contact today no other spontaneous speech. Insight and judgment are impaired. Plan: The patient will continue on her current medication we will likely continue titrating the Seroquel. We will monitor her for safety and encourage her participation in the milieu. She is not yet appropriate for discharge from mental health unit due to her inconsistency with symptoms.
[2017-04-07] MEDS: ACETAMINOPHEN TAB 325 MG TAB PO PRN ×2 (11:39→20:13)
[2017-04-07] MEDS: QUEtiapine 100 MG TAB PO SCH (20:07)
[2017-04-07] MEDS ORDERED: ZIPRASIDONE 20 MG VIAL IM PRN (21:31)
[2017-04-07] MEDS ORDERED: ZIPRASIDONE 20 MG VIAL IM ONE (21:36)
[2017-04-07] MEDS ORDERED: WATER FOR INJECTION, STERILE 10 ML IV ONE (21:36)
[2017-04-08] MEDS: NICOTINE 14MG/24HR PATCH TRANSDERM SCH (09:07)
[2017-04-08] MEDS: GABAPENTIN 100 MG CAP PO SCH ×3 (09:07→20:13)
[2017-04-08] MEDS: DULoxetine HCL 30 MG CAPSULE.DR PO SCH (09:07)
[2017-04-08] MEDS: TOPIRAMATE 25 MG TAB PO SCH ×2 (09:07→20:13)
[2017-04-08] MEDS: CYCLOBENZAPRINE 10 MG TAB PO PRN ×3 (09:08→22:10)
[2017-04-08] MEDS: IBUPROFEN 800 MG TAB PO PRN ×3 (09:10→22:10)
[2017-04-08] MEDS: ACETAMINOPHEN TAB 325 MG TAB PO PRN (09:52)
--- NOTE | 2017-04-08 14:50 | P.PN ---
Progress Note - Text interval history: The patient is found in the hallway she follows me to an interview room reluctantly. Staff report that the patient's been easily agitated. She required use of Geodon IM the last evening due to agitated disruptive behavior. The patient's appears more paranoid today she accuses me of not being a psychiatrist and wonders if I'm a residential carpet installer. The session was brief due to her lack of cooperation. Mental status exam: The patient is an overweight female she is dressed in her own clothing hygiene grooming fair. She stands for the duration of the interview she makes no eye contact with me. Initially she is soft- spoken but the volume of her voice raises during the course of the session to the point of becoming loud at times. She demonstrates paranoid persecutory thinking. She has difficulty maintaining a linear thought process. Insight and judgment are impaired. She is reporting no suicidal or homicidal ideation. Plan: The patient will continue on her current medications however I will titrate the Seroquel to 100 mg daily 300 mg at bedtime I will decrease the Cymbalta back down to 60 mg daily in case it is provoking instability of affect. We will continue to monitor her for safety and encourage participation in the milieu.
[2017-04-08] MEDS: QUEtiapine 100 MG TAB PO SCH ×2 (15:01→20:12)
[2017-04-08] MEDS: LORazepam 1 MG TAB PO PRN ×2 (15:07→22:10)
[2017-04-09] MEDS: NICOTINE 14MG/24HR PATCH TRANSDERM SCH (08:53)
[2017-04-09] MEDS: QUEtiapine 100 MG TAB PO SCH (08:54)
[2017-04-09] MEDS: GABAPENTIN 100 MG CAP PO SCH ×3 (08:54→21:02)
[2017-04-09] MEDS: TOPIRAMATE 25 MG TAB PO SCH ×2 (08:54→21:02)
[2017-04-09] MEDS: DULoxetine HCL 60 MG CAPSULE.DR PO SCH (08:54)
[2017-04-09] MEDS: IBUPROFEN 800 MG TAB PO PRN ×2 (09:26→21:07)
[2017-04-09] MEDS: CYCLOBENZAPRINE 10 MG TAB PO PRN ×2 (09:26→21:02)
[2017-04-09] MEDS: LORazepam 1 MG TAB PO PRN ×2 (11:35→21:20)
--- NOTE | 2017-04-09 15:16 | P.PN ---
Progress Note - Text Interval history: The patient is found in the hallway she follows me to an interview room. She continues to demonstrate some lability of affect including the agitation. She is apologetic for being more agitated with our session yesterday. We discussed her psychotropic medications including the idea of instituting Depakote as a mood stabilizer and discontinuing Neurontin and possibly Topamax. She offers some resistance to this idea but we'll give it further consideration. She did ask numerous questions regarding the Depakote however she did demonstrate a difficult time maintaining a linear thought process. She spontaneously verbalizes several paranoid thoughts. Mental status exam: The patient is alert hygiene grooming is adequate eye contact is poor today she again demonstrates a disorganized thought process at times and paranoid and persecutory thoughts. Insight and judgment are impaired. She is mildly agitated during the session but is directable she demonstrates no physical aggressiveness. She demonstrates no abnormal involuntary movements. She reports no suicidal or homicidal ideation intent or plan. Plan: The patient will continue on her current psychotropics I will titrate the Seroquel further slowly bedtime doses increased to 400 mg. If she is agreeable we will initiate Depakote ER and we'll consider discontinuing the Neurontin and possibly Topamax. We will monitor her for safety. She requires continued psychiatric hospitalization. Vital signs reviewed.
[2017-04-09] MEDS: QUEtiapine 400 MG TAB PO SCH (21:02)
[2017-04-10] MEDS: GABAPENTIN 100 MG CAP PO SCH ×3 (09:41→20:39)
[2017-04-10] MEDS: NICOTINE 14MG/24HR PATCH TRANSDERM SCH (09:41)
[2017-04-10] MEDS: DULoxetine HCL 60 MG CAPSULE.DR PO SCH (09:41)
[2017-04-10] MEDS: TOPIRAMATE 25 MG TAB PO SCH ×2 (09:42→20:39)
[2017-04-10] MEDS: LORazepam 1 MG TAB PO PRN (09:42)
[2017-04-10] MEDS: CYCLOBENZAPRINE 10 MG TAB PO PRN ×2 (09:42→20:40)
[2017-04-10] MEDS: IBUPROFEN 800 MG TAB PO PRN ×2 (09:42→20:40)
[2017-04-10] MEDS: QUEtiapine 100 MG TAB PO SCH (09:42)
--- NOTE | 2017-04-10 10:12 | P.PN ---
Progress Note - Text Interval history: The patient is found the hallway she follows me to an interview room. She reports getting quite upset this morning. She speaks at length for several minutes about her concerns regarding her family members and roommate. She feels that her daughter's father we'll try to get full custody and leave the state. She feels her roommate doesn't want her back anymore. She describes a variety of thoughts that she has that she assumes are real without any evidence. She continues to demonstrate significant lability of affect. Mental status exam: The patient is an overweight female she is dressed in her own clothing. The patient spontaneously speaks throughout the session until interrupted. She uses a very loud tone in describing her frustration. She is tearful throughout the session. She continues to harbor paranoid thinking. Her thoughts are disorganized at times. Insight and judgment are impaired. She demonstrates no aggressiveness she demonstrates no abnormal involuntary movements. She terminates the session by saying she is done talking and leaves the room. She has little regard for information I tried to present. Plan: The patient will continue on her current medications we have been titrating the Seroquel. We are considering initiating Depakote as a mood stabilizer. We will monitor her for safety and encourage her participation in the milieu. She indicates she will give Depakote further consideration and we will discuss it more tomorrow. Vital signs reviewed.
[2017-04-10] MEDS: QUEtiapine 400 MG TAB PO SCH (20:39)
[2017-04-11] MEDS: NICOTINE 14MG/24HR PATCH TRANSDERM SCH (09:05)
[2017-04-11] MEDS: GABAPENTIN 100 MG CAP PO SCH (09:06)
[2017-04-11] MEDS: TOPIRAMATE 25 MG TAB PO SCH ×2 (09:06→20:44)
[2017-04-11] MEDS: QUEtiapine 100 MG TAB PO SCH (09:06)
[2017-04-11] MEDS: DULoxetine HCL 60 MG CAPSULE.DR PO SCH (09:06)
[2017-04-11] MEDS: LORazepam 1 MG TAB PO PRN (09:09)
[2017-04-11] MEDS: CYCLOBENZAPRINE 10 MG TAB PO PRN ×2 (09:09→21:21)
[2017-04-11] MEDS: IBUPROFEN 800 MG TAB PO PRN ×2 (09:09→21:21)
--- NOTE | 2017-04-11 11:10 | P.PN ---
Progress Note - Text Interval history: The patient is found in her room she follows me to an interview room. Staff reports that she still demonstrate some affect lability. She will demonstrate irritability and agitation and sadness at other times. She indicates her mood is "not so good". We discussed adding Depakote as a mood stabilizer which may eventually allow us to discontinue the Seroquel. She feels the Abilify maintena is helpful and that is due again tomorrow. Mental status exam: The patient is an overweight female she seated calmly. She maintains a bland affect. She is mildly irritable and argumentative during the session. At time she is able to receive input. She signed herself frustrated she feels people are working against her at times. She demonstrates no physical aggressiveness. She demonstrates no abnormal involuntary movements. She reports intermittent feelings of sadness. She endorses no acute suicidal or homicidal ideation. She continues to have a paranoid thought content. Insight and judgment are impaired. Plan: Because of the patient's continued affect lability we will add Depakote ER 1000 mg at bedtime. Her liver enzymes are normal. We will give the Abilify maintena injection tomorrow. If Depakote demonstrate efficacy we will consider reducing the Seroquel. The patient requires continued psychiatric hospitalization.
[2017-04-11] MEDS: QUEtiapine 400 MG TAB PO SCH (20:44)
[2017-04-11] MEDS: DIVALPROEX ER 500 MG TAB.ER.24H PO SCH ×2 (20:44→21:21)
[2017-04-12] MEDS: NICOTINE 14MG/24HR PATCH TRANSDERM SCH (09:03)
[2017-04-12] MEDS: TOPIRAMATE 25 MG TAB PO SCH ×2 (09:04→20:09)
[2017-04-12] MEDS: QUEtiapine 100 MG TAB PO SCH (09:04)
[2017-04-12] MEDS: DULoxetine HCL 60 MG CAPSULE.DR PO SCH (09:04)
[2017-04-12] MEDS: CYCLOBENZAPRINE 10 MG TAB PO PRN ×2 (09:05→20:11)
[2017-04-12] MEDS: IBUPROFEN 800 MG TAB PO PRN ×3 (09:07→20:11)
[2017-04-12] MEDS: LORazepam 1 MG TAB PO PRN (09:36)
--- NOTE | 2017-04-12 09:40 | P.PN ---
Progress Note - Text Interval history: The patient is found in the hallway she reluctantly follows me to an interview room. She speaks for several minutes spontaneously and is quite agitated. She demonstrates a tangential thought process loose associations and disorganization in general. She continues to endorse paranoid and persecutory thoughts. She is not able to receive feedback her input from me in a productive fashion. Mental status exam: The patient is alert she is agitated she demonstrates spontaneous speech she is pressured at times and overly verbose. As noted there is disorganization of thought. There continues to be delusional thought content. She demonstrates lability of affect ranging from agitation to tearfulness. Insight and judgment are poor. She is not able to receive objective information to reality test her thoughts. She is reporting no suicidal or homicidal ideation. Overall her daily function is impaired by her current symptoms. Plan: The patient will continue on her current psychotropic medications. We will allow Depakote time to demonstrate efficacy as a mood stabilizer. Vital signs reviewed. The patient requires continued psychiatric hospitalization. We would expect her to further decompensate if discharged at this time. We will continue to monitor for safety and provide reality orientation when possible.
[2017-04-12] MEDS ORDERED: ARIPiprazole 400 MG VIAL (NO CHARGE) IM ONE (10:00)
[2017-04-12] MEDS: ACETAMINOPHEN TAB 325 MG TAB PO PRN (16:47)
[2017-04-12] MEDS: DIVALPROEX ER 500 MG TAB.ER.24H PO SCH (20:09)
[2017-04-12] MEDS: QUEtiapine 400 MG TAB PO SCH (22:48)
[2017-04-13] MEDS: LORazepam 1 MG TAB PO PRN ×2 (01:53→21:33)
[2017-04-13] MEDS: NICOTINE 14MG/24HR PATCH TRANSDERM SCH (08:49)
[2017-04-13] MEDS: DULoxetine HCL 60 MG CAPSULE.DR PO SCH (08:50)
[2017-04-13] MEDS: QUEtiapine 100 MG TAB PO SCH (08:50)
[2017-04-13] MEDS: TOPIRAMATE 25 MG TAB PO SCH ×2 (08:50→21:25)
[2017-04-13] MEDS: IBUPROFEN 800 MG TAB PO PRN (08:53)
[2017-04-13] MEDS: CYCLOBENZAPRINE 10 MG TAB PO PRN (08:54)
--- NOTE | 2017-04-13 10:14 | P.PN ---
Progress Note - Text Interval history: The patient is found in group she follows me to an interview room. She expresses frustration that the Depakote doesn't seem to be helping yet. We discussed that the medication needs time to demonstrate efficacy. she is encouraged to continue complying with medication. She reports having difficulty with sleep last night frequently waking. Staff indicated that she did frequently wake but slept approximate 6 hours. Appetite is reportedly stable. Mental status exam: The patient is alert she is an overweight female she seated calmly in her chair. She has little spontaneous speech today. She expresses her frustration that she is still here in the hospital she expresses her concerns regarding her medication. Overall she continues to seem distrustful of staff and other people in her life. She indicates that auditory hallucinations are "not too bad" she endorses no command auditory hallucinations. She states they are more mumbling in nature. No visual hallucinations. She is calmer today she demonstrates no yelling or agitated behavior. Insight and judgment remain impaired. She is endorsing no suicidal or homicidal ideation intent or plan. She demonstrates no abnormal involuntary movements. Plan: The patient will continue on the current medication. She is encouraged to comply with medication. She is reassured that we will look for opportunities to reduce the amount of medication if possible once she demonstrates clinical stability. Vital signs reviewed. She is encouraged to continue attending groups.
[2017-04-13] MEDS: QUEtiapine 400 MG TAB PO SCH (21:26)
[2017-04-13] MEDS: DIVALPROEX ER 500 MG TAB.ER.24H PO SCH (21:26)
[2017-04-14] MEDS: CYCLOBENZAPRINE 10 MG TAB PO PRN ×3 (03:45→19:39)
[2017-04-14] MEDS: IBUPROFEN 800 MG TAB PO PRN ×3 (03:45→20:10)
[2017-04-14] MEDS: DULoxetine HCL 60 MG CAPSULE.DR PO SCH (09:01)
[2017-04-14] MEDS: QUEtiapine 100 MG TAB PO SCH (09:01)
[2017-04-14] MEDS: NICOTINE 14MG/24HR PATCH TRANSDERM SCH (09:01)
[2017-04-14] MEDS: TOPIRAMATE 25 MG TAB PO SCH ×2 (09:01→20:10)
[2017-04-14 09:58] VITALS: BMI 30.9
--- NOTE | 2017-04-14 11:25 | P.PN ---
Progress Note - Text Interval history: The patient is found at the front office coordinator she follows me to an interview room. She states that she is not sleeping at night however nursing states that she slept soundly throughout the evening. She remains compliant with the medication. Again she had numerous questions about the Depakote which were answered. We will order a Depakote level for Monday. She continues to demonstrate some lability of affect colluding agitation staff report on a positive note she did have some insightful comments during group. Mental status exam: The patient is an overweight female she seated calmly she appears tired this morning. She is not lethargic. Eye contact is appropriate speech is fluent spontaneous nonpressured. She is reporting her mood is okay affect is blunted. She continues to struggle with trusting others and has some paranoid thinking. She maintained a consistent affect throughout our session. She demonstrated some difficulty retaining information we have previously discussed. Insight and judgment are limited. She demonstrates no verbal or physical aggressiveness. She reports no acute suicidal or homicidal ideation intent or plan. She is endorsing no auditory or visual hallucinations. Plan: The patient will continue on her current medications. We will draw the Depakote level and liver enzymes Monday. We will continue to monitor for safety and encourage her participation in the milieu.
[2017-04-14] MEDS: QUEtiapine 400 MG TAB PO SCH (20:10)
[2017-04-14] MEDS: DIVALPROEX ER 500 MG TAB.ER.24H PO SCH (20:10)
[2017-04-15] MEDS: CYCLOBENZAPRINE 10 MG TAB PO PRN ×2 (05:24→20:24)
[2017-04-15] MEDS: NICOTINE 14MG/24HR PATCH TRANSDERM SCH (08:44)
[2017-04-15] MEDS: DULoxetine HCL 60 MG CAPSULE.DR PO SCH (08:44)
[2017-04-15] MEDS: QUEtiapine 100 MG TAB PO SCH (08:45)
[2017-04-15] MEDS: TOPIRAMATE 25 MG TAB PO SCH ×2 (08:45→20:24)
[2017-04-15] MEDS: IBUPROFEN 800 MG TAB PO PRN ×2 (08:50→20:24)
[2017-04-15] MEDS: LORazepam 1 MG TAB PO PRN (11:13)
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
[2017-04-15] MEDS: QUEtiapine 400 MG TAB PO SCH (20:24)
[2017-04-15] MEDS: DIVALPROEX ER 500 MG TAB.ER.24H PO SCH (20:24)
[2017-04-16] MEDS: DULoxetine HCL 60 MG CAPSULE.DR PO SCH (09:09)
[2017-04-16] MEDS: TOPIRAMATE 25 MG TAB PO SCH ×2 (09:09→20:16)
[2017-04-16] MEDS: NICOTINE 14MG/24HR PATCH TRANSDERM SCH (09:09)
[2017-04-16] MEDS: QUEtiapine 100 MG TAB PO SCH (09:09)
[2017-04-16 11:14] LABS: Valproic Acid (Depakene) 63.4 ug/mL
--- NOTE | 2017-04-16 17:19 | PN ---
PROGRESS NOTE DATE OF SERVICE: 04/16/2017. CHIEF COMPLAINT: The patient was admitted due to disorganized behavior and thoughts. She was delusional. She was not sleeping. She was abusing alcohol. INTERVAL HISTORY: Patient has been doing fairly well. She had a quiet evening last night. She slept well today. She has been up and about. It is noteworthy that yesterday when I saw her, she got into an angry manner, talking about how her medications have not been working and how other things in her care have not been helpful to her. Today she has a completely different attitude. She acknowledged that yesterday she was having trouble with her mood. Today she was calmer. She seemed to have a better outlook. She was able to stay focused on immediate events. She was able to talk appropriately about discharge planning. She seemed to acknowledge that her thoughts may have gone off yesterday which is part of her problem to deal with. She has not had change in her general health. She tolerates psychotropic medications. MENTAL STATUS: The patient gave good eye contact. Psychomotor activity was a little slowed. Speech was appropriate. She had a calm manner. Her affect was in a reasonable range. She smiled. Her mood was even. She did not appear to be distressed. ASSESSMENT: I will continue the current diagnosis and treatment plan. I will continue current psychotropic medications the same. I encouraged the patient to work on coping skills to engage in the groups as preparatory for her discharge. LIVIA / MARCIA: [id number] /
[2017-04-16] MEDS: IBUPROFEN 800 MG TAB PO PRN (17:25)
[2017-04-16] MEDS: CYCLOBENZAPRINE 10 MG TAB PO PRN (17:25)
[2017-04-16] MEDS: DIVALPROEX ER 500 MG TAB.ER.24H PO SCH (20:16)
[2017-04-16] MEDS: QUEtiapine 400 MG TAB PO SCH (20:16)
[2017-04-17] MEDS: CYCLOBENZAPRINE 10 MG TAB PO PRN ×2 (01:17→20:55)
[2017-04-17] MEDS: DULoxetine HCL 60 MG CAPSULE.DR PO SCH (08:23)
[2017-04-17] MEDS: TOPIRAMATE 25 MG TAB PO SCH ×2 (08:23→20:53)
[2017-04-17] MEDS: NICOTINE 14MG/24HR PATCH TRANSDERM SCH (08:23)
[2017-04-17] MEDS: QUEtiapine 100 MG TAB PO SCH (08:23)
[2017-04-17] MEDS: IBUPROFEN 800 MG TAB PO PRN (08:24)
--- NOTE | 2017-04-17 11:29 | P.PN ---
Progress Note - Text Interval history: The patient is in her room she follows me to an interview room. Staff report that the patient has demonstrated more consistency in terms of affect. Reportedly she appears less irritable. The Depakote level was 63.4 liver enzymes were within normal limits. She states she was able to sleep throughout the night. We discussed her returning home and that we wanted social work to touch base with her roommate. Mental status exam: The patient was alert she was cooperative she was seated calmly in the chair. She reports that her mood is "okay". She is reporting no acute suicidal or homicidal ideation intent or plan. She continues to have some residual suspiciousness feelings but she is able to participate in some reality testing with those thoughts. She demonstrates no physical or verbal aggressiveness. She demonstrates no abnormal involuntary movements. Insight and judgment are slowly improving. She maintains a constricted affect throughout the session. Plan: The patient will continue on the psychotropic medication is written. We will continue to monitor her for safety and encourage her participation in the milieu. As she demonstrates continued stability of affect we will plan for her discharge. Social work is asked to contact the patient's roommate to discuss discharge planning again. We will continue to monitor the patient for safety and encourage her full participation in the milieu.
[2017-04-17] MEDS: ACETAMINOPHEN TAB 325 MG TAB PO PRN (13:41)
[2017-04-17] MEDS: DIVALPROEX ER 500 MG TAB.ER.24H PO SCH (20:53)
[2017-04-17] MEDS: QUEtiapine 400 MG TAB PO SCH (20:54)
[2017-04-18] MEDS: IBUPROFEN 800 MG TAB PO PRN ×2 (03:34→17:01)
[2017-04-18] MEDS: CYCLOBENZAPRINE 10 MG TAB PO PRN ×2 (03:34→17:01)
[2017-04-18] MEDS: QUEtiapine 100 MG TAB PO SCH (09:09)
[2017-04-18] MEDS: DULoxetine HCL 60 MG CAPSULE.DR PO SCH (09:09)
[2017-04-18] MEDS: NICOTINE 14MG/24HR PATCH TRANSDERM SCH (09:09)
[2017-04-18] MEDS: TOPIRAMATE 25 MG TAB PO SCH ×2 (09:09→21:13)
--- NOTE | 2017-04-18 10:08 | P.PN ---
Progress Note - Text Interval history: The patient is found in group she follows me to an interview room. She indicates that her mood is better. She participated in a phone family meeting with her roommate Melyssa. The patient is able to return to that residence upon discharge. The patient states yesterday she felt better and was able to maintain a consistent affect. She is less paranoid about the situation at home. The patient indicates that she slept most of the night but did wake at 3:30 but then fell back asleep. She has been attending groups. She has no questions or concerns regarding her psychotropic medication at this time. She has not used any Ativan today. Mental status exam: The patient is an overweight female dressed in her own clothing. She has adequate hygiene grooming. Eye contact is appropriate. Speech is fluent spontaneous nonpressured. Her affect is more appropriately expressive. She demonstrates no lability of affect during our session. She demonstrates future oriented thinking. She expresses no paranoid or persecutory thoughts she denies having those today. She is endorsing no hallucinations. She demonstrates no verbal or physical aggressiveness and demonstrates no abnormal involuntary movements. She remains oriented to person place and date. Plan: The patient seems to be demonstrating some improvement. We will continue her psychotropic medications as written. We will discuss her progress during treatment team meeting today. I anticipate the patient will be appropriate for discharge sometime this week. Vital signs reviewed. We will monitor her for safety and encourage her full participation in the milieu.
[2017-04-18] MEDS: DIVALPROEX ER 500 MG TAB.ER.24H PO SCH (21:13)
[2017-04-18] MEDS: QUEtiapine 400 MG TAB PO SCH (21:14)
[2017-04-19 07:09] VITALS: BP 111/76; PULSE 97; RESP 14; TEMP 97.9
[2017-04-19] MEDS: QUEtiapine 100 MG TAB PO SCH (08:41)
[2017-04-19] MEDS: DULoxetine HCL 60 MG CAPSULE.DR PO SCH (08:41)
[2017-04-19] MEDS: NICOTINE 14MG/24HR PATCH TRANSDERM SCH (08:41)
[2017-04-19] MEDS: TOPIRAMATE 25 MG TAB PO SCH (08:41)
[2017-04-19] MEDS: IBUPROFEN 800 MG TAB PO PRN (08:42)
[2017-04-19] MEDS: CYCLOBENZAPRINE 10 MG TAB PO PRN (08:42)
[2017-04-19] MEDS ORDERED: hydrOXYzine PAMOATE 25 MG CAP PO PRN (09:56)
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
[2017-04-19] MEDS: ACETAMINOPHEN TAB 325 MG TAB PO PRN (12:24)
== END 2017-04-19 14:04 | disposition home or self-care (01) | DRG 885 ==
LOC: EC 20:45 → 3MHU 23:52
PROVIDERS: ADMIT Psychiatry & Neurology Psychiatry; ATTEND Psychiatry & Neurology Psychiatry
DX: F25.0 Schizoaffective disorder, bipolar type (principal); F23 Brief psychotic disorder; R45.851 Suicidal ideations; F10.10 Alcohol abuse, uncomplicated; F17.200 Nicotine dependence, unspecified, uncomplicated; F41.0 Panic disorder [episodic paroxysmal anxiety]; G89.29 Other chronic pain; I10 Essential (primary) hypertension; M79.7 Fibromyalgia; M54.5 Low back pain; G43.909 Migraine, unspecified, not intractable, without status migrainosus; E66.3 Overweight; Z68.31 Body mass index [BMI] 31.0-31.9, adult; Z88.0 Allergy status to penicillin; Z79.899 Other long term (current) drug therapy; Z91.83 Wandering in diseases classified elsewhere
CPT/HCPCS: 36415; 80053; 80061; 80164; 80306; 81001; 81025; 82075; 82947; 83036; 83520; 84443; 84450; 84460; 85025; 99285

== ENCOUNTER 2018-01-22 14:04 | Emergency (ER) | payer OTHER ==
--- NOTE | 2018-01-22 14:53 | ED ---
General Adult HPI - General Chief complaint: Eye Problems Stated complaint: Eye injury Time Seen by Provider: 01/22/18 14:10 Source: patient, RN notes reviewed Mode of arrival: ambulatory Limitations: no limitations - History of Present Illness Initial comments: This is a 42-year-old female who presents emergency Department complaining of inferior orbital pain and swelling of the left eye. Patient states 2 days ago she tripped over a cord and hit her face on a lamp. Patient states she was bleeding under the eye but she did not want stitches so she didn't come in. Patient states he comes in today because the pain continues. Patient denies any actual eye pain. Patient denies any visual disturbance. Patient states the only area that is tender the inferior orbital region which is also swollen. Patient states she's had a tetanus shot one month ago. Patient denies any other injury. Patient denies losing consciousness. Patient denies any neck pain. Patient denies any numbness weakness. Patient denies any extremity pain. - Related Data Home Medications Medication Instructions Recorded Confirmed DULoxetine HCL [Cymbalta] 90 mg PO DAILY 01/22/18 01/22/18 Ibuprofen [Motrin Ib] 800 mg PO TID PRN 01/22/18 01/22/18 hydrOXYzine PAMOATE [Vistaril] 50 mg PO BID 01/22/18 01/22/18 Previous Rx's Medication Instructions Recorded ARIPiprazole IM [Abilify Maintena] 400 mg IM Q30D #1 vial 04/19/17 QUEtiapine [SEROquel] 100 mg PO DAILY #30 tab 04/19/17 QUEtiapine [SEROquel] 400 mg PO HS #30 tab 04/19/17 Allergies Allergy/AdvReac Type Severity Reaction Status Date / Time Penicillins Allergy Rash/Hives Verified 01/22/18 14:25 shellfish derived Allergy Rash/Hives Verified 01/22/18 14:25 Review of Systems ROS Statement: Those systems with pertinent positive or pertinent negative responses have been documented in the HPI. ROS Other: All systems not noted in ROS Statement are negative. Past Medical History Past Medical History: Fibromyalgia Additional Past Medical History / Comment(s): Schizoaffective disorder, fibromyalgia, herniated disc History of Any Multi-Drug Resistant Organisms: None Reported Past Surgical History: Section Past Anesthesia/Blood Transfusion Reactions: No Reported Reaction Past Psychological History: Anxiety, Bipolar, Depression, Schizoaffective Disorder, Schizophrenia Smoking Status: Current every day smoker Past Alcohol Use History: Occasional Past Drug Use History: Marijuana General Exam - General Exam Comments Initial Comments: GENERAL: Patient is well-developed and well-nourished. Patient is nontoxic and well- hydrated and is in mild distress. ENT: Neck is soft and supple. No significant lymphadenopathy is noted. Oropharynx is clear. Moist mucous membranes. Neck has full range of motion without eliciting any pain. EYES: The sclera were anicteric and conjunctiva were pink and moist. Extraocular movements were intact and pupils were equal round and reactive to light. Inferior to the orbit is swollen and there is a healing laceration. There is also extremely tender to palpate. SKIN: There is a healing laceration measuring about 5 cm underneath the left eye. NEUROLOGIC: Patient is alert and oriented x3. Cranial nerves II through XII are grossly intact. Motor and sensory are also intact. Normal speech, volume and content. Symmetrical smile. MUSCULOSKELETAL: Normal extremities with adequate strength and full range of motion. LYMPHATICS: No significant lymphadenopathy is noted PSYCHIATRIC: Normal psychiatric evaluation. Limitations: no limitations Course Vital Signs 01/22/18 14:13 Temperature 98.6 F Pulse Rate 84 Respiratory 16 Rate Blood Pressure 125/86 O2 Sat by Pulse 98 Oximetry Medical Decision Making - Medical Decision Making CT of the orbit is negative for fracture. Patient remains without visual disturbance. Patient remains without eye pain. Disposition Clinical Impression: Facial contusion Disposition: HOME SELF-CARE Condition: Good Instructions: Contusion in Adults (ED) Is patient prescribed a controlled substance at d/c from ED?: No Referrals: None,Stated [REFERRING] - 1-2 days Time of Disposition: 15:57
--- NOTE | 2018-01-22 15:44 | CT ---
EXAMINATION TYPE: CT orbits wo con DATE OF EXAM: 01/22/2018 COMPARISON: None HISTORY: laceration/swelling lt orbit/lt cheek area CT DLP: 221.6 mGycm Automated exposure control for dose reduction was used. FINDINGS: There is left premaxillary and infraorbital preseptal soft tissue swelling without focal hematoma. Th e globes, lenses, and extraocular muscles as well as the optic nerves appear symmetric. There is no p ost septal soft tissue swelling. The lamina papyracea and bony orbits appear intact. The maxillary spine and nasal bone also appear in tact. Visualized paranasal sinuses and mastoid air cells appear well aerated other than a left maxill enrique 8 mm polyp versus mucosal retention cyst. The mandibular condyles are located within the mandibul ar fossa. Zygomatic arches and pterygoid plates are intact. IMPRESSION: LEFT PREMAXILLARY AND INFRAORBITAL SOFT TISSUE SWELLING. NO EVIDENCE OF GLOBE RUPTURE OR LENS DISPLAC EMENT ON CT. NO BONY ORBITS FRACTURE.
[2018-01-22 16:14] VITALS: BP 140/85; PULSE 82; RESP 18; TEMP 98
== END 2018-01-22 16:13 | disposition home or self-care (01) ==
LOC: EC 14:04
DX: S01.81XA Laceration without foreign body of other part of head, initial encounter (principal); M79.7 Fibromyalgia; F41.9 Anxiety disorder, unspecified; F31.9 Bipolar disorder, unspecified; F17.200 Nicotine dependence, unspecified, uncomplicated; Z79.899 Other long term (current) drug therapy; Z88.0 Allergy status to penicillin; Z91.013 Allergy to seafood
CPT/HCPCS: 70480; 99283

== ENCOUNTER → 2018-11-21 | Outpatient (CLI) | payer OTHER ==
--- NOTE | 2018-11-22 11:40 | MM ---
Reason for exam: screening (asymptomatic). Last mammogram was performed 2 years and 6 months ago. History: Took hormonal contraceptives beginning at age 18. Physical Findings: A clinical breast exam by your physician is recommended on an annual basis and results should be correlated with mammographic findings. MG Screening Mammo w CAD Bilateral CC and MLO view(s) were taken. Prior study comparison: June 03, 2016, bilateral MG screening mammo w CAD. The breast tissue is heterogeneously dense. This may lower the sensitivity of mammography. Finding: There is a 7 mm obscured oval mass in the outer quadrant, middle, central position of the right breast. ASSESSMENT: Incomplete: need additional imaging evaluation, BI-RAD 0 RECOMMENDATION: Special view mammogram of the right breast. If lesion persists on supplemental views, image directed ultrasound is recommended. [facility] will attempt to contact patient to return for supplemental views and ultrasound if indicated.
== END | disposition home or self-care (01) ==
LOC: RADMAMWWP 10:06
PROVIDERS: ATTEND Internal Medicine
DX: Z12.31 Encounter for screening mammogram for malignant neoplasm of breast (principal)
CPT/HCPCS: 77067

== ENCOUNTER → 2018-12-05 | Outpatient (CLI) | payer OTHER ==
--- NOTE | 2018-12-05 11:35 | MM ---
Reason for exam: additional evaluation requested from abnormal screening. Last mammogram was performed less than 1 month ago. History: Took hormonal contraceptives beginning at age 18. Physical Findings: Nurse did not find any significant physical abnormalities on exam. MG Work Up Mamm w CAD RT Spot compression CC and ML view(s) were taken of the right breast. Prior study comparison: November 21, 2018, bilateral MG screening mammo w CAD. June 03, 2016, bilateral MG screening mammo w CAD. The breast tissue is heterogeneously dense. This may lower the sensitivity of mammography. There is a 5.5mm mass of the right upper outer quadrant 7-8cm from nipple that persists on additional views. These results were verbally communicated with the patient and result sheet given to the patient on 12/05/18. ASSESSMENT: Incomplete: need additional imaging evaluation, BI-RAD 0 RECOMMENDATION: Ultrasound of the right breast. (upper outer quadrant)
--- NOTE | 2018-12-05 11:36 | USB ---
Reason for exam: additional evaluation requested from abnormal screening. History: Took hormonal contraceptives beginning at age 18. US Breast Workup Limited RT Right limited breast ultrasound including focal area of concern, retroareolar and axilla demonstrates a 0.5 x 0.4 x 0.4cm cystic lesion at 10 o'clock, correlates with mammogram. These results were verbally communicated with the patient and result sheet given to the patient on 12/05/18. ASSESSMENT: Benign, BI-RAD 2 RECOMMENDATION: Return to routine screening mammogram schedule for both breasts.
== END ==
LOC: RADMAMWWP 10:14
PROVIDERS: ATTEND Internal Medicine
DX: R92.8 Other abnormal and inconclusive findings on diagnostic imaging of breast (principal)
CPT/HCPCS: 77065

== ENCOUNTER 2020-01-01 21:12 | Emergency (ER) | payer OTHER ==
[2020-01-01] MEDS ORDERED: SODIUM CHLORIDE 0.9% 500 ML 500 ML IV STA (21:45)
[2020-01-01] MEDS ORDERED: KETOROLAC 15 MG/ML 1 ML VIAL IVP STA (21:45)
[2020-01-01 22:17] LABS: Basophils # (A) 0.1 k/uL (0-0.2); Basophils % (A) 1 %; Eosinophils # (A) 0.4 k/uL (0-0.7); Eosinophils % (A) 3 %; HCT 46.7 % (34.0-46.0); HGB 14.9 gm/dL (11.4-16.0); Lymphocytes # (A) 2.1 k/uL (1.0-4.8); Lymphocytes % (A) 18 %; MCH 29.4 pg (25.0-35.0); MCV 91.9 fL (80.0-100.0); Mean Platelet Volume 8.3; Monocytes # (A) 0.6 k/uL (0-1.0); Monocytes % (A) 5 %; Neutrophils # (A) 8.3 k/uL (1.3-7.7); Neutrophils % (A) 72 %; Platelet Count 278 k/uL (150-450); RBC 5.08 m/uL (3.80-5.40); RDW 14.4 % (11.5-15.5); WBC 11.5 k/uL (3.8-10.6)
[2020-01-01 22:26] LABS: ALT 54 U/L (4-34); African American GFR (CKD) >90 (>60 ml/min/1.73 sqM); Anion Gap 9 mmol/L; Blood Urea Nitrogen 11 mg/dL (7-17); Calcium 9.9 mg/dL (8.4-10.2); Carbon Dioxide 25 mmol/L (22-30); Chloride 103 mmol/L (98-107); Glucose 139 mg/dL (74-99); Non-African American GFR(CKD) >90 (>60 ml/min/1.73 sqM); Sodium 137 mmol/L (137-145); Total Bilirubin 0.7 mg/dL (0.2-1.3)
--- NOTE | 2020-01-01 22:26 | ED ---
Back Pain HPI - General Chief Complaint: Back Pain/Injury Stated Complaint: Abdominal Pain Time Seen by Provider: 01/01/20 21:23 Source: patient Limitations: no limitations - History of Present Illness Initial Comments: Patient is a 44-year-old female presenting to emergency Department with complaints of right-sided flank pain that started 2 days ago. Patient states the pain has been intermittent. He describes the pain as very sharp when it at its highest and does go down to a dull ache. Patient states there is some radiation to the right side as well over to the left side. She denies history of kidney stones. She has history of , no other abdominal surgeries. She denies any abdominal pain, nausea or vomiting, diarrhea. She denies any fever or chills. She denies any dysuria or increase in frequency. She does admit to history of chronic back pain, fibromyalgia states this pain feels different. She has no further complaints at this time. - Related Data Home Medications Medication Instructions Recorded Confirmed DULoxetine HCL [Cymbalta] 90 mg PO DAILY 01/22/18 01/22/18 Ibuprofen [Motrin Ib] 800 mg PO TID PRN 01/22/18 01/22/18 hydrOXYzine pamoate [Vistaril] 50 mg PO BID 01/22/18 01/22/18 Previous Rx's Medication Instructions Recorded ARIPiprazole IM [Abilify Maintena] 400 mg IM Q30D #1 vial 04/19/17 QUEtiapine [SEROquel] 100 mg PO DAILY #30 tab 04/19/17 QUEtiapine [SEROquel] 400 mg PO HS #30 tab 04/19/17 Allergies Allergy/AdvReac Type Severity Reaction Status Date / Time Penicillins Allergy Rash/Hives Verified 01/01/20 21:13 shellfish derived Allergy Rash/Hives Verified 01/01/20 21:13 Review of Systems ROS Statement: Those systems with pertinent positive or pertinent negative responses have been documented in the HPI. ROS Other: All systems not noted in ROS Statement are negative. Past Medical History Past Medical History: Fibromyalgia, Hyperlipidemia Additional Past Medical History / Comment(s): Schizoaffective disorder, fibromyalgia, herniated disc History of Any Multi-Drug Resistant Organisms: None Reported Past Surgical History: Section Past Anesthesia/Blood Transfusion Reactions: No Reported Reaction Past Psychological History: Anxiety, Bipolar, Depression, Schizoaffective Disorder, Schizophrenia Smoking Status: Current every day smoker Past Alcohol Use History: Occasional Past Drug Use History: Marijuana General Exam - General Exam Comments Initial Comments: GENERAL: Patient is well-developed and well-nourished. Patient is nontoxic and in no acute distress. HEAD: Atraumatic, normocephalic. EYES: Pupils equal round and reactive to light, extraocular movements intact, sclera anicteric, conjunctiva are normal. Eyelids were unremarkable. ENT: TMs normal, nares patent, oropharynx clear without exudates. Moist mucous membranes. NECK: Normal range of motion, supple without lymphadenopathy or JVD. LUNGS: Unlabored respirations. Breath sounds clear to auscultation bilaterally and equal. No wheezes rales or rhonchi. HEART: Regular rate and rhythm without murmurs, rubs or gallops. ABDOMEN: Soft, nontender, normoactive bowel sounds. No guarding, no rebound. No masses appreciated. Mild right flank pain on palpation. : Deferred MUSCULOSKELETAL: Normal extremities with adequate strength and normal range of motion, no pitting or edema. No clubbing or cyanosis. NEUROLOGICAL: Patient is alert and oriented x 3. Motor and sensory are also intact. Cranial nerves II through XII grossly intact. Symmetrical smile. Normal speech, normal gait. PSYCH: Normal mood, normal affect. SKIN: Warm, Dry, normal turgor, no rashes or lesions noted. Limitations: no limitations Course Vital Signs 01/01/20 21:13 Temperature 98.6 F Pulse Rate 99 Respiratory 16 Rate Blood Pressure 143/83 O2 Sat by Pulse 99 Oximetry Medical Decision Making - Medical Decision Making Patient is a 44 -year-old female here for right-sided flank pain 2 days. She has history of fibromyalgia and chronic back pain. Her vital signs are stable. Laboratory does show a slight leukocytosis of 11.5, likely reactive, liver enzymes are also slightly elevated, she does admit to drinking alcohol with past few days. Her urine shows no evidence of infection, no hematuria. I did recommend a computed tomography scan without contrast to rule out a kidney stone however patient refused computed tomography scan. I did order a KUB which showed no acute process. Patient was given some fluids and Toradol and has been resting comfortably. I discussed with patient that this could be a stone but also be muscle skeletal in nature. She states she recently started going back to her chiropractor. I did recommend continue with anti-inflammatories, drink plenty of fluids, use heat packs to the area. Patient is stable for discharge and she is agreement with this plan of care. Return parameters were discussed w ith the patient she verbalized understanding. Case discussed with Dr. Whiteside. - Lab Data Result diagrams: 01/01/20 22:02 01/01/20 22:02 Lab Results 01/01/20 01/01/20 01/01/20 Range/Units 22:02 22:02 22:02 WBC 11.5 H (3.8-10.6) k/uL RBC 5.08 (3.80-5.40) m/uL Hgb 14.9 (11.4-16.0) gm/dL Hct 46.7 H (34.0-46.0) % MCV 91.9 (80.0-100.0) fL MCH 29.4 (25.0-35.0) pg MCHC 32.0 (31.0-37.0) g/dL RDW 14.4 (11.5-15.5) % Plt Count 278 (150-450) k/uL Neutrophils % 72 % Lymphocytes % 18 % Monocytes % 5 % Eosinophils % 3 % Basophils % 1 % Neutrophils # 8.3 H (1.3-7.7) k/uL Lymphocytes # 2.1 (1.0-4.8) k/uL Monocytes # 0.6 (0-1.0) k/uL Eosinophils # 0.4 (0-0.7) k/uL Basophils # 0.1 (0-0.2) k/uL Sodium 137 (137-145) mmol/L Potassium 5.1 (3.5-5.1) mmol/L Chloride 103 (98-107) mmol/L Carbon Dioxide 25 (22-30) mmol/L Anion Gap 9 mmol/L BUN 11 (7-17) mg/dL Creatinine 0.73 (0.52-1.04) mg/dL Est GFR (CKD-EPI)AfAm >90 (>60 ml/min/1.73 sqM) Est GFR (CKD-EPI)NonAf >90 (>60 ml/min/1.73 sqM) Glucose 139 H (74-99) mg/dL Plasma Lactic Acid Isak (0.7-2.0) mmol/L Calcium 9.9 (8.4-10.2) mg/dL Total Bilirubin 0.7 (0.2-1.3) mg/dL AST 86 H (14-36) U/L ALT 54 H (4-34) U/L Alkaline Phosphatase 139 H (38-126) U/L Total Protein 7.8 (6.3-8.2) g/dL Albumin 4.6 (3.5-5.0) g/dL Lipase 135 (23-300) U/L Urine Color Yellow Urine Appearance Clear (Clear) Urine pH 6.0 (5.0-8.0) Ur Specific [place] 1.026 (1.001-1.035) Urine Protein 1+ H (Negative) Urine Glucose (UA) Negative (Negative) Urine Ketones Trace H (Negative) Urine Blood Negative (Negative) Urine Nitrite Negative (Negative) Urine Bilirubin Negative (Negative) Urine Urobilinogen <2.0 (<2.0) mg/dL Ur Leukocyte Esterase Negative (Negative) Urine RBC 1 (0-5) /hpf Urine WBC 1 (0-5) /hpf Ur Squamous Epith Cells 10 H (0-4) /hpf Urine Bacteria Rare H (None) /hpf Urine Mucus Few H (None) /hpf 01/01/20 Range/Units 22:02 WBC (3.8-10.6) k/uL RBC (3.80-5.40) m/uL Hgb (11.4-16.0) gm/dL Hct (34.0-46.0) % MCV (80.0-100.0) fL MCH (25.0-35.0) pg MCHC (31.0-37.0) g/dL RDW (11.5-15.5) % Plt Count (150-450) k/uL Neutrophils % % Lymphocytes % % Monocytes % % Eosinophils % % Basophils % % Neutrophils # (1.3-7.7) k/uL Lymphocytes # (1.0-4.8) k/uL Monocytes # (0-1.0) k/uL Eosinophils # (0-0.7) k/uL Basophils # (0-0.2) k/uL Sodium (137-145) mmol/L Potassium (3.5-5.1) mmol/L Chloride (98-107) mmol/L Carbon Dioxide (22-30) mmol/L Anion Gap mmol/L BUN (7-17) mg/dL Creatinine (0.52-1.04) mg/dL Est GFR (CKD-EPI)AfAm (>60 ml/min/1.73 sqM) Est GFR (CKD-EPI)NonAf (>60 ml/min/1.73 sqM) Glucose (74-99) mg/dL Plasma Lactic Acid [place]ak 2.1 H* (0.7-2.0) mmol/L Calcium (8.4-10.2) mg/dL Total Bilirubin (0.2-1.3) mg/dL AST (14-36) U/L ALT (4-34) U/L Alkaline Phosphatase (38-126) U/L Total Protein (6.3-8.2) g/dL Albumin (3.5-5.0) g/dL Lipase (23-300) U/L Urine Color Urine Appearance (Clear) Urine pH (5.0-8.0) Ur Specific [place] (1.001-1.035) Urine Protein (Negative) Urine Glucose (UA) (Negative) Urine Ketones (Negative) Urine Blood (Negative) Urine Nitrite (Negative) Urine Bilirubin (Negative) Urine Urobilinogen (<2.0) mg/dL Ur Leukocyte Esterase (Negative) Urine RBC (0-5) /hpf Urine WBC (0-5) /hpf Ur Squamous Epith Cells (0-4) /hpf Urine Bacteria (None) /hpf Urine Mucus (None) /hpf Disposition Clinical Impression: Right flank pain, Back pain Disposition: HOME SELF-CARE Condition: Stable Instructions (If sedation given, give patient instructions): Back Pain (ED) Additional Instructions: Please return to the Emergency Department if symptoms worsen or any other c oncerns. Recommend continuing with the Motrin for discomfort, he packs to the area, gentle stretching. Follow up with PCP. Is patient prescribed a controlled substance at d/c from ED?: No Referrals: [facility] [Primary Care Provider] - 1-2 days
[2020-01-01 22:38] LABS: Albumin 4.6 g/dL (3.5-5.0); Potassium 5.1 mmol/L (3.5-5.1); Total Protein 7.8 g/dL (6.3-8.2)
[2020-01-01 22:39] LABS: AST 86 U/L (14-36); Alkaline Phosphatase 139 U/L (38-126)
[2020-01-01 22:47] LABS: Appearance,Urine Clear (Clear); Bacteria,Urine Rare /hpf; Bilirubin,Urine Negative (Negative); Blood,Urine Negative (Negative); Color,Urine Yellow; Glucose,Urine (UA) Negative (Negative); Ketones,Urine Trace (Negative); Leukocyte Esterase,Urine Negative (Negative); Mucus,Urine Few /hpf; Nitrite,Urine Negative (Negative); Protein,Urine 1+ (Negative); RBC,Urine 1 /hpf (0-5); Specific Gravity,Urine 1.026 (1.001-1.035); Squamous Epithelial Cell,Urine 10 /hpf (0-4); Urobilinogen,Urine <2.0 mg/dL (<2.0); WBC,Urine 1 /hpf (0-5)
--- NOTE | 2020-01-01 23:06 | XR ---
EXAMINATION TYPE: XR KUB DATE OF EXAM: 01/01/2020 COMPARISON: NONE HISTORY: Right-sided pain TECHNIQUE: 2 views FINDINGS: 2 views upright show no sign of intestinal obstruction or pneumoperitoneum. Fecal pattern i s normal. There is no sign of a mass. Lung bases are clear. There are no pathologic calcifications ov er the kidneys. IMPRESSION: Nonacute abdomen.
[2020-01-01 23:43] VITALS: BP 163/91; PULSE 91; RESP 18; TEMP 98.3
== END 2020-01-01 23:44 | disposition home or self-care (01) ==
LOC: EC 21:12
DX: R10.9 Unspecified abdominal pain (principal); M54.9 Dorsalgia, unspecified; G89.29 Other chronic pain; F41.9 Anxiety disorder, unspecified; F31.9 Bipolar disorder, unspecified; F25.9 Schizoaffective disorder, unspecified; F17.200 Nicotine dependence, unspecified, uncomplicated; M79.7 Fibromyalgia; Z79.899 Other long term (current) drug therapy; Z88.0 Allergy status to penicillin; Z91.013 Allergy to seafood
CPT/HCPCS: 36415; 80053; 83605; 83690; 85025; 81001; 74018; 99284; 96374; J1885

== ENCOUNTER 2020-06-27 23:30 | Emergency (ER) | payer OTHER ==
[2020-06-27 23:40] VITALS: BP 142/86; PULSE 73; RESP 18; TEMP 98.8
--- NOTE | 2020-06-28 00:17 | ED ---
General Adult HPI - General Chief complaint: Recheck/Abnormal Lab/Rx Stated complaint: Covid test Source: patient Mode of arrival: ambulatory Limitations: no limitations - Related Data Home Medications Medication Instructions Recorded Confirmed DULoxetine HCL [Cymbalta] 90 mg PO DAILY 01/22/18 01/22/18 Ibuprofen [Motrin Ib] 800 mg PO TID PRN 01/22/18 01/22/18 hydrOXYzine pamoate [Vistaril] 50 mg PO BID 01/22/18 01/22/18 Previous Rx's Medication Instructions Recorded ARIPiprazole IM [Abilify Maintena] 400 mg IM Q30D #1 vial 04/19/17 QUEtiapine [SEROquel] 100 mg PO DAILY #30 tab 04/19/17 QUEtiapine [SEROquel] 400 mg PO HS #30 tab 04/19/17 Allergies Allergy/AdvReac Type Severity Reaction Status Date / Time Penicillins Allergy Rash/Hives Verified 06/27/20 23:41 shellfish derived Allergy Rash/Hives Verified 06/27/20 23:41 Review of Systems ROS Statement: Those systems with pertinent positive or pertinent negative responses have been documented in the HPI. ROS Other: All systems not noted in ROS Statement are negative. Past Medical History Past Medical History: Fibromyalgia, Hyperlipidemia Additional Past Medical History / Comment(s): Schizoaffective disorder, fibromyalgia, herniated disc History of Any Multi-Drug Resistant Organisms: None Reported Past Surgical History: Section Past Anesthesia/Blood Transfusion Reactions: No Reported Reaction Past Psychological History: Anxiety, Bipolar, Depression, Schizoaffective Disorder, Schizophrenia Smoking Status: Current every day smoker Past Alcohol Use History: Occasional Past Drug Use History: Marijuana General Exam Limitations: no limitations Course Vital Signs 06/27/20 23:34 Temperature 98.8 F Pulse Rate 73 Respiratory 18 Rate Blood Pressure 142/86 O2 Sat by Pulse 98 Oximetry Medical Decision Making - Lab Data Lab Results 06/27/20 Range/Units 23:43 Coronavirus (PCR) Detected A (Not Detectd) Disposition Clinical Impression: COVID-19 Disposition: HOME SELF-CARE Condition: Good Instructions (If sedation given, give patient instructions): Coronavirus Disease 2019 (COVID-19) Is patient prescribed a controlled substance at d/c from ED?: No Referrals: [facility] [Primary Care Provider] - 1-2 days
== END 2020-06-28 00:25 | disposition home or self-care (01) ==
LOC: EC 23:30
DX: U07.1 COVID-19 (principal); E78.5 Hyperlipidemia, unspecified; F41.9 Anxiety disorder, unspecified; F32.9 Major depressive disorder, single episode, unspecified; F17.200 Nicotine dependence, unspecified, uncomplicated; F12.90 Cannabis use, unspecified, uncomplicated
CPT/HCPCS: 87635

== ENCOUNTER 2021-09-14 11:37 | Emergency (ER) | payer OTHER ==
[2021-09-14 12:15] VITALS: BP 162/92; PULSE 89; RESP 20; TEMP 98.3
[2021-09-14] MEDS ORDERED: ONDANSETRON 4 MG/2 ML VIAL IVP STA (12:38)
[2021-09-14] MEDS ORDERED: SODIUM CHLORIDE 0.9% 1,000 ML IV ONE (12:39)
--- NOTE | 2021-09-14 12:44 | ED ---
General Adult HPI - General Chief complaint: Upper Respiratory Infection Stated complaint: poss carbon monoxide exposure Time Seen by Provider: 09/14/21 12:15 Source: patient, RN notes reviewed, old records reviewed Mode of arrival: ambulatory Limitations: no limitations - History of Present Illness Initial comments: This a 46-year-old female who presents emergency department stating that for the last couple of days she's had a mild headache and has had some nausea. Patient denies any vomiting. Patient states 2-3 days ago she started Lexapro and she was wondering if that could possibly be the cause per patient told triage she was having some blurred vision however she was able to see me clearly and other items in the room. Patient denies any fever chills or cough patient denies chest pain difficulty breathing shortness of breath. Patient denies any palpitations. Patient denies any abdominal pain. Patient is a smoker. - Related Data Home Medications Medication Instructions Recorded Confirmed ARIPiprazole IM [Abilify Maintena] 400 mg IM Q28D 09/14/21 09/14/21 Escitalopram [Lexapro] 20 mg PO DAILY 09/14/21 09/14/21 Ibuprofen [Motrin] 600 mg PO Q6H PRN 09/14/21 09/14/21 Allergies Allergy/AdvReac Type Severity Reaction Status Date / Time iodine Allergy Rash/Hives Verified 09/14/21 13:57 Penicillins Allergy Rash/Hives Verified 09/14/21 13:57 all over body shellfish derived Allergy Rash/Hives Verified 09/14/21 13:57 Review of Systems ROS Statement: Those systems with pertinent positive or pertinent negative responses have been documented in the HPI. ROS Other: All systems not noted in ROS Statement are negative. Past Medical History Past Medical History: Fibromyalgia, Hyperlipidemia Additional Past Medical History / Comment(s): Schizoaffective disorder, fibromyalgia, herniated disc History of Any Multi-Drug Resistant Organisms: None Reported Past Surgical History: Section Past Anesthesia/Blood Transfusion Reactions: No Reported Reaction Past Psychological History: Anxiety, Bipolar, Depression, Schizoaffective Disorder, Schizophrenia Smoking Status: Current every day smoker Past Alcohol Use History: Occasional Past Drug Use History: Marijuana General Exam - General Exam Comments Initial Comments: GENERAL: Patient is well-developed and well-nourished. Patient is nontoxic and well- hydrated and is in mild distress. ENT: Neck is soft and supple. No significant lymphadenopathy is noted. Oropharynx is clear. Moist mucous membranes. Neck has full range of motion without eliciting any pain. EYES: The sclera were anicteric and conjunctiva were pink and moist. Extraocular movements were intact and pupils were equal round and reactive to light. Eyelids were unremarkable. PULMONARY: Unlabored respirations. Good breath sounds bilaterally. No audible rales rhonchi or wheezing was noted. CARDIOVASCULAR: There is a regular rate and rhythm without any murmurs gallops or rubs. ABDOMEN: Soft and nontender with normal bowel sounds. SKIN: Skin is clear with no lesions or rashes and otherwise unremarkable. NEUROLOGIC: Patient is alert and oriented x3. Cranial nerves II through XII are grossly intact. Motor and sensory are also intact. Normal speech, volume and content. Symmetrical smile. MUSCULOSKELETAL: Normal extremities with adequate strength and full range of motion. LYMPHATICS: No significant lymphadenopathy is noted PSYCHIATRIC: Normal psychiatric evaluation. Limitations: no limitations Course Vital Signs 09/14/21 12:13 Temperature 98.3 F Pulse Rate 89 Respiratory 20 Rate Blood Pressure 162/92 O2 Sat by Pulse 95 Oximetry Medical Decision Making - Medical Decision Making I will back into reevaluate the patient. Patient states the Zofran helped her nausea. I believe these symptoms are related to the Lexapro that she just taken. - Lab Data Result diagrams: 09/14/21 12:44 09/14/21 12:44 Lab Results 09/14/21 09/14/21 09/14/21 Range/Units 12:44 12:44 12:44 WBC 14.3 H (3.8-10.6) k/uL RBC 5.09 (3.80-5.40) m/uL Hgb 15.9 (11.4-16.0) gm/dL Hct 47.2 H (34.0-46.0) % MCV 92.7 (80.0-100.0) fL MCH 31.2 (25.0-35.0) pg MCHC 33.6 (31.0-37.0) g/dL RDW 13.7 (11.5-15.5) % Plt Count 384 (150-450) k/uL MPV 8.0 Neutrophils % 72 % Lymphocytes % 20 % Monocytes % 5 % Eosinophils % 1 % Basophils % 0 % Neutrophils # 10.3 H (1.3-7.7) k/uL Lymphocytes # 2.9 (1.0-4.8) k/uL Monocytes # 0.7 (0-1.0) k/uL Eosinophils # 0.2 (0-0.7) k/uL Basophils # 0.0 (0-0.2) k/uL Carbon Monoxide, Quant 2.5 (<10.0) % Sodium 140 (137-145) mmol/L Potassium 4.1 (3.5-5.1) mmol/L Chloride 105 (98-107) mmol/L Carbon Dioxide 24 (22-30) mmol/L Anion Gap 11 mmol/L BUN 12 (7-17) mg/dL Creatinine 0.69 (0.52-1.04) mg/dL Est GFR (CKD-EPI)AfAm >90 (>60 ml/min/1.73 sqM) Est GFR (CKD-EPI)NonAf >90 (>60 ml/min/1.73 sqM) Glucose 115 H (74-99) mg/dL Calcium 9.9 (8.4-10.2) mg/dL Total Bilirubin 0.6 (0.2-1.3) mg/dL AST 25 (14-36) U/L ALT 29 (4-34) U/L Alkaline Phosphatase 92 (38-126) U/L Total Protein 8.0 (6.3-8.2) g/dL Albumin 4.8 (3.5-5.0) g/dL Disposition Clinical Impression: Adverse effects of medication Disposition: HOME SELF-CARE Condition: Good Instructions (If sedation given, give patient instructions): Acute Nausea and Vomiting (ED) Is patient prescribed a controlled substance at d/c from ED?: No Referrals: [facility] [Primary Care Provider] - 1-2 days Time of Disposition: 14:11
[2021-09-14 13:29] LABS: ALT 29 U/L (4-34); AST 25 U/L (14-36); African American GFR (CKD) >90 (>60 ml/min/1.73 sqM); Albumin 4.8 g/dL (3.5-5.0); Alkaline Phosphatase 92 U/L (38-126); Anion Gap 11 mmol/L; Blood Urea Nitrogen 12 mg/dL (7-17); Calcium 9.9 mg/dL (8.4-10.2); Carbon Dioxide 24 mmol/L (22-30); Chloride 105 mmol/L (98-107); Glucose 115 mg/dL (74-99); Non-African American GFR(CKD) >90 (>60 ml/min/1.73 sqM); Potassium 4.1 mmol/L (3.5-5.1); Sodium 140 mmol/L (137-145); Total Bilirubin 0.6 mg/dL (0.2-1.3)
[2021-09-14 13:41] LABS: Basophils % (A) 0 %; Eosinophils # (A) 0.2 k/uL (0-0.7); Eosinophils % (A) 1 %; HCT 47.2 % (34.0-46.0); HGB 15.9 gm/dL (11.4-16.0); Lymphocytes # (A) 2.9 k/uL (1.0-4.8); Lymphocytes % (A) 20 %; MCH 31.2 pg (25.0-35.0); MCHC 33.6 g/dL (31.0-37.0); MCV 92.7 fL (80.0-100.0); Monocytes # (A) 0.7 k/uL (0-1.0); Monocytes % (A) 5 %; Neutrophils # (A) 10.3 k/uL (1.3-7.7); Neutrophils % (A) 72 %; Platelet Count 384 k/uL (150-450); RBC 5.09 m/uL (3.80-5.40); RDW 13.7 % (11.5-15.5); WBC 14.3 k/uL (3.8-10.6)
== END 2021-09-14 15:21 | disposition home or self-care (01) ==
LOC: EC 11:37
DX: R51.9 Headache, unspecified (principal); R11.0 Nausea; H53.8 Other visual disturbances; T43.225A Adverse effect of selective serotonin reuptake inhibitors, initial encounter; E78.5 Hyperlipidemia, unspecified; M79.7 Fibromyalgia; F31.9 Bipolar disorder, unspecified; F41.9 Anxiety disorder, unspecified; F25.9 Schizoaffective disorder, unspecified; F17.200 Nicotine dependence, unspecified, uncomplicated; F12.90 Cannabis use, unspecified, uncomplicated; Z79.899 Other long term (current) drug therapy
CPT/HCPCS: 36415; 80053; 82375; 85025; 99284; 96374; 96361; J2405

== ENCOUNTER → 2023-05-22 | Outpatient (CLI) | payer OTHER ==
--- NOTE | 2023-05-24 19:58 | MM ---
Reason for Exam: Screening (asymptomatic). Last mammogram was performed 4 year(s) and 6 month(s) ago. Patient History: Menarche at age 14. First Full-Term at age 23. Hormonal Contraceptives, from age 18 until age 26. Last menstrual period: 04/30/2023 Risk Values: Sia 5 year model risk: 0.8%. NCI Lifetime model risk: 8.5%. Prior Study Comparison: 06/03/2016 Bilateral Screening Mammogram, [facility]. 11/21/2018 Bilateral Screening Mammogram, [facility]. 12/05/2018 Right Diagnostic Mammogram, [facility]. Tissue Density: There are scattered fibroglandular densities. Findings: Analyzed By CAD. Chronic nodularity on the right. There is no suspicious group of microcalcifications or new suspicious mass in either breast. Overall Assessment: Benign, BI-RAD 2 Management: Screening Mammogram of both breasts in 1 year. . Patient should continue monthly self-breast exams. A clinical breast exam by your physician is recommended on an annual basis. This exam should not preclude additional follow-up of suspicious palpable abnormalities. Note on Sia scores and lifetime risk: 1. A Sia score greater than 3% is considered moderate risk. If this is the case, consider specialist referral to assess eligibility for a risk reducing agent. 2. If overall lifetime risk for the development of breast cancer is 20% or higher, the patient may qualify for future screening with alternating mammogram and breast MRI. Electronically signed and approved by: Cris Cook M.D. Radiologist
== END | disposition home or self-care (01) ==
LOC: RADMAMWWP 15:27
PROVIDERS: ATTEND Family Medicine
DX: Z12.31 Encounter for screening mammogram for malignant neoplasm of breast (principal)
CPT/HCPCS: 77063; 77067